=== PATIENT | female | born 2000 | race Caucasian/White ===

== ENCOUNTER 2025-03-06 09:36 | Emergency (ER) | payer OTHER, SELFPAY ==
--- NOTE | ~2025-03-06 | XR_ITS ---
XR ankle LT min 3V, XR foot LT min 3V 03/06/2025 10:21 Indication: Left lateral ankle and foot pain Procedure: 4 views left ankle and 4 views left foot Comparison: No prior studies for comparison. Findings: No fracture, subluxation or dislocation. Lisfranc joint intact. No soft tissue abnormality. No foreign bodies. Moderate lateral soft tissue swelling. Impression: 1: No acute bone or joint abnormality. Reviewed, dictated and finalized at location A. Impression: 1: No acute bone or joint abnormality. Impression: 1: No acute bone or joint abnormality.
[2025-03-06 09:46] VITALS: BP 124/79; PULSE 70; RESP 20; TEMP 36.7; O2SAT 97
--- OUTSIDE RECORDS SUMMARY | 2025-03-06 10:17 | XMS_ITS | Data Portability ---
Author Organization [facility] [place] Address [address] [place] [address] Care Team Providers Care Assembler Garment Form Name Role Phone SAMRA MORENO Grain Oilseed Or Pasture Grower Unavailable EDUARDO MAYS Primary Care Provider [phone] Assessment No assessment recorded. Plan of Treatment Reminders Order Date Submit Date Provider Last Modified By Organization Details Last Modified Time Details Appointments None recorded. Lab test, urine 2024 025 [email or web address] In-Office Order, Internal Use Only DO Not Attach Compendium DO Not Attach Compendium, Do Not Delete/merge, [id number] 5 17:58:06 streptococc us group B, culture, unspecified specimen 2024 025 [facility], [address] [facility], [facility], [place], [address], 5 12:40:39 HIV 1 + 2, meaningful use set 2024 025 [facility], [address] [facility], [facility], [place], [address], 5 08:38:48 RPR (rapid plasma reagin), serum 2024 025 [facility], [address] [facility], [facility], [place], [address], 5 08:38:47 Referral None recorded. Procedures None recorded. Surgeries None recorded. Imaging US, obstetric, biophysical profile - needs weekly BPP until delivery for pre-pregnan cy BMI 47 03/07/ 2025 03/07/2 025 [facility], [address] [place] [address], [address], 11:38:21 Medication Orders Sprintec (28) 0.25 mg-0.035 mg tablet 2024 025 [facility], [address] [place], [address], 17:58:11 Patient TargetsNo targets recorded. Patient InstructionsNo instructions recorded. Reason for Referral None Reported. Results Created Date Observation Date Name Description Value Unit Range Abnormal Flag Note LastModifiedBy Organization Detail LastModifiedTime 11/11/1911/12/2024 [facility] [address] hemoglobin 13.3 g/dL 11.1-1 5.9 Not Available [facility] ([facility]) [address] [place], [address], 11/12/2024 05:37:05 11/11/19 25 11/12/2024 [facility] CT hematocrit 38.3 % 34.0-4 6.6 Not Available [facility] ([facility]) [address] [place], [address], 11/12/2024 05:37:05 11/11/19 25 11/14/2024 NUSWA B VAGIN ITIS PLUS (VG+) atopobium vaginae MODERA TE - 1 score Not Available [facility] ([facility]) [address] [place], [address], 11/14/2024 20:35:57 11/11/19 25 11/14/2024 NUSWA B VAGIN ITIS PLUS (VG+) bvab 2 LOW - 0 score Not Available [facility] ([facility]) [address] [place], [address], 11/14/2024 20:35:57 11/11/19 25 11/14/2024 NUA B VAGIN ITIS PLUS (VG+) megasphaera 1 HIGH - 2 score abnormal Calcu late total score by sole pyle the 3 indiv idual bacte rial vagin osis (BV) marke r score s toget her. Total score is inter prete d as follo ws: Total score 0-1: Indic ates the absen ce of BV. Total score 2: Indet ermin ate for BV. Addit ional clini cheo data shoul d be evalu ated to estab vipin a diagn osis. Total score 3-6: Indic ates the prese nce of BV. Not Available [facility] ([facility]) [address] [place], [address], 11/14/2024 20:35:57 11/11/19 25 11/14/2024 NUA B VAGIN ITIS PLUS (VG+) aneudy albicans, SCARLET POSITI VE negati ve abnormal Not Available [facility] ([facility]) [address] [place], [address], 11/14/2024 20:35:57 11/11/19 25 11/14/2024 NUA B VAGIN ITIS PLUS (VG+) aneudy glabrata, SCARLET NEGATI VE negati ve Not Available [facility] ([facility]) [address] [place], [address], 11/14/2024 20:35:57 11/11/19 25 11/14/2024 NUA B VAGIN ITIS PLUS (VG+) trich vag by SCARLET NEGATI VE negati ve Not Available [facility] ([facility]) [address] [place], [address], 11/14/2024 20:35:57 11/11/19 25 11/14/2024 NUA B VAGIN ITIS PLUS (VG+) chlamydia trachomatis, SCARLET NEGATI VE negati ve Not Available [facility] ([facility]) [address] [place], [address], 11/14/2024 20:35:57 11/11/19 25 11/14/2024 NUSWA B VAGIN ITIS PLUS (VG+) neisseria gonorrhoeae, SCARLET NEGATI VE negati ve Not Available [facility] ([facility]) [address] [facility], [place], [address], 11/14/2024 20:35:57 12/23/19 25 12/23/2024 RPR, RFX QN RPR/C ONFIR M TP RPR NON REACTI VE nonrea ctive Not Available [facility] ([facility]) [address] [facility], [place], [address], 12/23/2024 08:38:46 12/23/19 25 12/23/2024 HIV AB/P2 4 AG WITH REFLE X HIV Ab/P24 Ag screen NON REACTI VE nonrea ctive HIV-1 /HIV- 2 antib odies and HIV-1 p24 antig en were NOT detec vania. There is no labor atory evide nce of HIV infec tion. HIV Negat jayme Not Available [facility] ([facility]) [address] [facility], [place], [address], 12/23/2024 08:38:48 01/07/20 25 01/10/2025 STREP GP B CULTU RE strep gp B culture NEGATI VE negati ve Cente rs for Disea se Contr ol and Preve ntion (CDC) and Ameri can Congr ess of Obste trici ans and Gynec ologi sts (ACOG ) guide lines for preve ntion of perin atal group B strep tococ cheo (GBS) disea se speci fy co-co llect ion of a vagin al and recta l swab speci men to maxim ize sensi tivit y of GBS detec tion. Per the CDC and ACOG, swabb ing both the lower vagin a and rectu m subst antia lly incre ases the yield of detec tion derrick red with sampl ing the vagin a alone . Penic illin G, ampic illin , or cefaz justin are indic ated for intra partu m proph ylaxi s of perin atal GBS colon izati on. Refle x susce ptibi lity testi ng shoul d be perfo rmed prior to use of clind amyci n only on GBS isola ayse from penic illin -irlanda rgic women who are consi dered a high risk for anaph ylaxi s. Treat ment with vanco mycin witho ut addit ional testi ng is warra nted if resis tance to clind amyci n is noted . Not Available [facility] ([facility]) [address] [facility], [place], [address], 01/10/2025 12:40:39 02/22/2002/21/2025 pregn brian test, urine HCG negati ve Not Available In-Office Order Internal Use Only DO Not Attach Compendium DO Not Attach Compendium, Do Not Delete/merge, [id number] 02/21/2025 16:25:49 11/21/19 US, obste tric, follo w-up No observ ation record ed. [email or web address] Not Available 11/25 17:59:57 12/17/19 25 12/16/2024 US, obste tric, follo w-up No observ ation record ed. [facility] [address] [place] [address], [address], 01/04/2025 15:56:21 12/21/19 25 12/20/2024 US, obste tric, follo w-up No observ ation record ed. [facility] [address] [place] [address], [address], 12/22/2024 10:36:33 12/24/19 25 12/23/2024 US, obste tric, bioph ysica l profi le No observ ation record ed. [facility] [address] [place], [address], 01/10/2025 11:40:31 12/28/19 25 12/23/2024 US, obste tric, bioph ysica l profi le No observ ation record ed. [facility] [address], [address], 01/10/2025 11:41:31 12/31/19 25 12/30/2024 US, obste tric, bioph ysica l profi le No observ ation record ed. [facility] [address], [address], 01/10/2025 11:39:53 01/07/20 25 01/06/2025 US, obste tric, bioph ysica l profi le No observ ation record ed. [facility] [address], [address], 01/11/2025 11:40:50 Result Notes None recorded. Problems Name Problem SNOMED Code Status Onset Date Resolution Date Notes Provider Name and Address Organization Details Recorded Time Candidia sis of skin 15945201 Completed 202010/25/2023 Eduardo Mays MD Attn: Denver pyle,[address] [place], [address], [facility] - [facility] 4 09:19:02 Allergic rhinitis 65627290 Completed 202010/25/2023 Eduardo Mays MD Attn: [place] pyle,[address] [place], [address], [place] [facility] 4 09:18:58 Vaginal discharg e 360272882 Completed 05/21/2020 Rika Coleman null, [place] - [facility] 0 12:04:42 Tobacco dependen ce syndrome 40969699 Completed 202005/01/2024 Eduardo Mays MD Attn: eDnver pyle,[address] [place], [address], [place] - [facility] 4 15:51:22 Body mass index 40+ - severely obese 865010222 Completed 202008/07/2022 Eduardo Mays MD Attn: Danicaandrae pyle,[address] [facility], [place], [address], [place] - [facility] 4 15:51:14 Low back pain 548366854 Completed 202010/25/2023 Eduardo Mays MD Attn: [place] pyle,[address] [facility], [place], [address], [place] [facility] 4 09:19:07 Unstable knee 457551006 Completed 202010/25/2023 Eduardo Mays MD Attn: Danicaandrae pyle,[address] [facility], [place], [address], [place] [facility] 4 09:19:26 Essentia l hyperten malik 04560653 Completed 202105/01/2024 Eduardo Mays MD Attn: Danicaandrae pyle,[address] [facility], [place], [address], [place] [facility] 4 15:52:07 Body mass index 30+ - obesity 033166486 Completed 202105/01/2024 Eduardo Mays MD Attn: Danicaandrae pyle,[address] [facility], [place], [address], [place] [facility] 4 15:51:10 Vitamin D deficien 36543009 Completed 202110/25/2023 SAMRA MORENO MD Attn: [place] pyle,[address] [facility], [place], [address], [place] [facility] 4 10:27:01 Cannabis dependen ce 90762580 Active 2022 Eduardo Mays MD Attn: [place] pyle,[address] [facility], [place], [address], [place] [facility] 3 23:49:00 Generali zed anxiety disorder 68744248 Active 2022 Eduardo Mays MD Attn: [place] pyle,[address] [facility], [place], [address], [place] [facility] 3 23:49:32 Major depressi ve disorder 777333635 Completed 202205/01/2024 Eduardo Mays MD Attn: Denver pyle,[address] [facility], [place], [address], [place] [facility] 4 15:52:05 Derangem ent of right knee 33403947377 417895 Active 2022 Eduardo Mays MD Attn: [place] pyle,[address] [facility], [place], [address], [place] [facility] 3 23:50:06 Vitamin D below referenc e range 092220201 Completed 202207/26/2024 SAMRA MORENO MD Attn: [place] pyle,[address] [facility], [place], [address], [place] [facility] 4 11:19:32 Body mass index 40+ - severely obese 507796701 Active 2023 Eduardo Mays MD Attn: [place] pyle,[address] [facility], [place], [address], [place] [facility] 4 15:51:14 Nicotine dependen ce 48360332 Completed 202309/16/2024 ASMRA MORENO MD Attn: [place] pyle,[address] [facility], [place], [address], [place] [facility] 4 11:47:52 Mixed anxiety and depressi ve disorder 694563726 Active 2023 SAMRA MORENO MD Attn: Denver pyle,[address] [facility], [place], [address], [place] [facility] 5 17:51:16 Pregnanc y 27644569 Completed 202301/31/2025 Alexus Delong [place] null, [place] [facility] 5 16:00:25 Maternal obesity complica ting pregnanc y, childbir th and the puerperi , antepart 54676612564 7 Completed 2023 Pre-preg BMI 47.1, pre-preg weight 283 lbs. Recommen ded 11-20 lb weight gain. Weekly antenata l surveill ance starting at 34w0d ordered 12/09/24. SAMRA MORENO MD Attn: Denver pyle,[address] [place], [address], [place] [facility] 5 10:14:05 Mixed anxiety and depressi ve disorder 441102939 Completed 2023 Inconsis tently taking sertrali ne and aripipra zole since 08/2024 after addition al reassura nce from PharmD that benefits outweigh risks. SAMRA MORENO MD Attn: Denver edenilson,[address] [place], [address], [place] [facility] 5 17:56:02 Vitamin D deficien cy 44212623 Completed 2023 SAMRA MORENO MD Attn: [place] pyle,[address] [place], [address], [place] [facility] 4 10:27:02 Varicell a non-immu ne 758374670 Active 2023 needs varicell a vaccine after delivery and 4-8 weeks postpart SAMRA MORENO MD Attn: Danicaandrae pyle,[address] [place], [address], [place] [facility] 4 11:19:19 Varicell a non-immu ne 033811100 Completed 2023 needs varicell a vaccine after delivery and 4-8 weeks postpart SAMRA MORENO MD Attn: Denver edenilson,[address] [place], [address], [place] [facility] 4 11:19:19 Maternal obesity complica ting pregnanc y, childbir th and the puerperi , antepart 90015321640 7 Active 2023 Pre-preg BMI 47.1, pre-preg weight 283 lbs. Recommen ded 11-20 lb weight gain. Weekly antenata l surveill ance starting at 34w0d ordered 12/09/24. SAMRA MORENO MD Attn: Denver pyle,[address] [facility], [place], [address], [place] - [facility] 5 10:14:05 Elevated blood-pr essure reading without diagnosi s of hyperten malik 701657454 Active 2023 BP in 130s/80s during 1st and early 2nd trimeste r. Normal baseline PIH labs. Prescrib ed baby aspirin for pre-E prophyla xis. Repeat PIH labs during OB triage visit on 12/15/24 showed indeterm inate range UPCR of 269.9; discharg ed with home BP cuff for home monitori ng. SAMRA MORENO MD Attn: Denver pyle,[address] [facility], [place], [address], [place] [facility] 5 10:44:13 Elevated blood-pr essure reading without diagnosi s of hyperten malik 240471395 Completed 2023 BP in 130s/80s during 1st and early 2nd trimeste r. Normal baseline PIH labs. Prescrib ed baby aspirin for pre-E prophyla xis. Repeat PIH labs during OB triage visit on 12/15/24 showed indeterm inate range UPCR of 269.9; discharg ed with home BP cuff for home monitori ng. SAMRA MORENO MD Attn: [place] pyle,[address] [facility], [place], [address], [place] [facility] 5 10:44:13 Vitamin D deficien cy 86522280 Active 2023 SAMRA MORENO MD Attn: [place] pyle,[address] [facility], [place], [address], [place] [facility] 4 10:27:01 Breast lump 98327006 Completed 05/21/2020 Rika Coleman null, [place] [facility] 0 12:04:32 Attentio n deficit hyperact ivity disorder 606881625 Active SAMRA MORENO MD Attn: Denver pyle,[address] [facility], [place], [address], [facility] 2 10:07:14 Problem Notes None recorded. Procedures Surgical History Date Name Laterality Status Provider Name and Address Organization Details Recorded Time 4 OB Dating Ultrasound completed SAMRA MORENO MD Attn: Accounting, [facility], [place], [address], [facility] - [facility] 06/24/2024 15:03:03 2 Date of Last Pap Smear completed Maeve Garcia MA [facility] 09/16/2022 14:32:51 Oral surgery procedure completed Alexus Delong [facility] 02/15/2019 10:13:14 Imaging Results None recorded. Procedure Notes None recorded. Medical Equipment None Reported. Allergies Allergen ID Allergen Name Allergen Category Reaction Reaction Severity Criticality Documentation Date Start Date Code Code System Note Provider Name and Address Organization Details Recorded Time 989815 wheat preparati on food,medi cation abdominal pain moderate Not available 11/03/20202020 48472 52 RxNorm MELANIE SMILEY NP Attn: Denver pyle,[address] [facility], [place], [address], [facility] - [facility] 1 16:39:43 636354 tramadol medicatio n vomiting severe high 06/17/20232012 46986 RxNorm Maeve Mahmood MA [facility] [place] - [facility] 3 09:17:59 Medications Name Sig Start Date Stop Date Status Note LastModified by Organization Details LastModified Time cyclobenz aprine 10 mg tablet TAKE 1 TABLET BY MOUTH TWICE DAILY EVERY 12 HOURS NEEDED 08/07 completed prn Not Available Not Available Not Available amoxicill in 500 mg capsule 02/15 completed Not Available Not Available Not Available clonidine HCl 0.1 mg tablet TAKE 1 TABLET BY MOUTH AT BEDTIME 02/18 completed Not Available Not Available Not Available acetamino phen 325 mg tablet 06/24 completed Not Available Not Available Not Available trazodone 50 mg tablet TAKE 2 TABLETS BY MOUTH AT BEDTIME 04/12 completed Not Available Not Available Not Available ibuprofen 800 mg tablet TAKE 1 TABLET BY MOUTH EVERY 8 HOURS NEEDED 08/14 completed Not Available Not Available Not Available fluconazo le 150 mg tablet Take 1 tablet by oral route. 12/09 completed Not Available Not Available Not Available hydrocodo ne 5 mg-acetam inophen 325 mg tablet TAKE 1 TABLET BY MOUTH EVERY 8 HOURS NEEDED 06/24 completed Not Available Not Available Not Available methylphe nidate 5 mg tablet Take 1 tablet twice a day by oral route as directed for 30 days. 12/11 completed Not Available Not Available Not Available hydroxyzi ne pamoate 50 mg capsule Take 1 capsule every day by oral route at bedtime for 30 days. 01/31 completed Not Available Not Available Not Available methylphe nidate ER 54 mg tablet,ex tended release 24 hr Take 1 tablet every day by oral route in the morning for 30 days. 12/11 completed Not Available Not Available Not Available acetamino phen 300 mg-codein e 30 mg tablet 12/11 completed Not Available Not Available Not Available aspirin 81 mg tablet,de layed release Take 1 tablet every day by oral route, for pre-ecla mpsia preventi on. 01/31 completed Not Available Not Available Not Available trazodone 100 mg tablet TAKE 1 TABLET BY MOUTH AT BEDTIME 06/24 completed Not Available Not Available Not Available nystatin 100,000 unit/gram topical cream APPLY CREAM TOPICALL Y TO AFFECTED AREA TWICE DAILY 08/14 completed Not Available Not Available Not Available lidocaine 5 % topical patch APPLY 1 PATCH TOPICALL Y ONCE DAILY LEAVE ON MOST PAINFUL AREA FOR UP TO 12 HOURS 06/24 completed Not Available Not Available Not Available polymyxin B sulfate 10,000 unit-trim ethoprim 1 mg/mL eye drops 02/27 completed Not Available Not Available Not Available ergocalci ferol (vitamin D2) 1,250 mcg (50,000 unit) capsule Take 1 capsule every week by oral route. 06/05 completed Not Available Not Available Not Available SSD 1 % topical cream 03/10 completed Not Available Not Available Not Available sertralin e 50 mg tablet TAKE 1 TABLET BY MOUTH ONCE DAILY active Not Available Not Available No t Available amoxicill in 500 mg-potass ium clavulana te 125 mg tablet 05/04 completed Not Available Not Available Not Available buspirone 15 mg tablet TAKE 1 TABLET BY MOUTH THREE TIMES DAILY active Not Available Not Available No t Available escitalop rolo 10 mg tablet TAKE 1 TABLET BY MOUTH ONCE DAILY 10/22 completed Not Available Not Available Not Available Sprintec (28) 0.25 mg-0.035 mg tablet TAKE 1 TABLET BY MOUTH ONCE DAILY active Not Available Not Available No t Available Strattera 25 mg capsule TAKE 1 CAPSULE BY MOUTH ONCE DAILY IN THE MORNING 06/03 completed ineffect jayme for managing ADHD Not Available Not Available Not Available cyclobenz aprine 5 mg tablet TAKE 1 TABLET BY MOUTH THREE TIMES DAILY NEEDED FOR MUSCLE SPASMS 06/05 completed Not Available Not Available Not Available aripipraz ole 5 mg tablet TAKE 1 TABLET BY MOUTH ONCE DAILY active Not Available Not Available No t Available Baby Aspirin 09/16 completed 81mg Not Available Not Available Not Available cholecalc iferol (vitamin D3) 25 mcg (1,000 unit) tablet Take 1 tablet every day by oral route. 08/23 completed Not Available Not Available Not Available CompleteN ate 29 mg iron-1 mg chewable tablet Chew 1 tablet every day by oral route. 08/23 completed Not Available Not Available Not Available M- Plus 27 mg iron-1 mg tablet Take 1 tablet every day by oral route. 01/31 completed Not Available Not Available Not Available Vitals Date Recorded Body height Body mass index (BMI) Body weight Oxygen saturation Oxygen saturation in Arterial blood by Pulse oximetry Heart rate Body temperature Systolic blood pressure Diastolic blood pressure Provider Name and Address Organization Details Last Updated DateTime 5 165.1 cm 50.4 kg/m2 814090. 84 g 99 % 99 % 94 /min 98.3 [degF] 137 mm[Hg] 81 mm[Hg] Alexus Delong [place] - [facility] 5 16:10:35 Date Recorded Body height Body mass index (BMI) Body weight Oxygen saturation Oxygen saturation in Arterial blood by Pulse oximetry Heart rate Body temperature Systolic blood pressure Diastolic blood pressure Provider Name and Address Organization Details Last Updated DateTime 5 165.1 cm 51.6 kg/m2 757835. 98 g 98 % 98 % 76 /min 97.4 [degF] 122 mm[Hg] 84 mm[Hg] Alexus Delong MA [facility] 5 15:16:53 Date Recorded Body height Body mass index (BMI) Body weight Body temperature Oxygen saturation Oxygen saturation in Arterial blood by Pulse oximetry Respiratory rate Heart rate Systolic blood pressure Diastolic blood pressure Systolic blood pressure Diastolic blood pressure Provider Name and Address Organization Details Last Updated DateTime 5 165.1 cm 51.8 kg/m2 119968. 58 g 97.6 [degF] 98 % 98 % 16 /min 84 /min 133 mm[Hg] 80 mm[Hg] 130 mm[Hg] 83 mm[Hg] Maeve Mahmood MA [facility] 5 15:08:48 Date Recorded Body height Body mass index (BMI) Body weight Oxygen saturation Oxygen saturation in Arterial blood by Pulse oximetry Heart rate Body temperature Systolic blood pressure Diastolic blood pressure Provider Name and Address Organization Details Last Updated DateTime 5 165.1 cm 46.6 kg/m2 095502. 91 g 98 % 98 % 66 /min 97.8 [degF] 117 mm[Hg] 84 mm[Hg] Alexus Delong MA [facility] 5 15:56:11 Date Recorded Body height Body mass index (BMI) Body weight Oxygen saturation Oxygen saturation in Arterial blood by Pulse oximetry Heart rate Body temperature Systolic blood pressure Diastolic blood pressure Provider Name and Address Organization Details Last Updated DateTime 5 165.1 cm 48.3 kg/m2 304241. 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 No Information not available 07/16/2023 Are You Blind Or Do You Have Difficulty Seeing? No Information not available 08/15/2021 Is Blood Transfusion Acceptable In An Emergency? Yes Information not available 11/27/2015 What Is Your Level Of Caffeine Consumption? Moderate Information not available 06/03/2024 How Much Tobacco Do You Chew? None Information not available 12/11/2016 In The 14 Days Before Symptom Onset, Have You Had Close Contact With A Laboratory-confi rmed COVID-19 While That Case Was Ill? No Information not available 08/14/2021 In The 14 Days Before Symptom Onset, Have You Had Close Contact With A Person Who Is Under Investigation For COVID-19 While That Person Was Ill? No Information not available 08/07/2022 Have You Been To An Area Known To Be High Risk For COVID-19? No Information not available 08/14/2021 Are You Deaf Or Do You Have Serious Difficulty Hearing? No Information not available 08/15/2021 What Type Of Diet Are You Following? REGULAR Information not available 11/27/2015 Which Illicit Or Recreational Drugs Have You Used? Marijuanna Information not available 12/11/2016 Education 12 Information no t available 12/11/2016 Are There Any Guns Present In Your Home? No Information not available 08/07/2022 Live Alone Or With Others? With Others Information not available 11/27/2015 Do You Have A High School Diploma Or Higher Education? Yes Information not available 06/17/2023 Do You Sometimes Have To Miss Your Medical Appointments Due To Difficult Getting Transportation? No Information not available 06/17/2023 Do You Feel Unfairly Treated Due To Things Such As Race, Age, Gender, Disability Or Some Other Reason? Yes Information not available 06/17/2023 Do You Feel Physically And Emotionally Safe While Living At Home? Yes Information not available 06/17/2023 Do You Feel Physically And Emotionally Safe In Your Neighborhood Or Other Public Places? Yes Information not available 06/17/2023 Sex Assigned At Female Information not available 08/14/2021 In School? No Information no t available 08/14/2021 Highest Grade Completed 12 Information not available 08/14/2021 Lives With Partner/spous e Information not available 08/14/2021 Sexual Attraction Both Information not available 08/14/2021 Have You Ever Had Sex? Yes Information not available 08/14/2021 Current Gender Identity Female Information not available 08/14/2021 What Was The Date Of Your Most Recent Tobacco Screening? 02/21/2025 Information not available 02/21/2025 How Many Children Do You Have? 0 Information not available 12/11/2016 What Is Your Current Pack Years? 10packyears Information not available 07/16/2023 Performs Monthly Self-breast Exam? Yes Sometimes Information not available 03/10/2018 Do You Use Protection During Sex? No Information not available 03/10/2018 What Is Your Relationship Status? Single Information not available 12/11/2016 Do You Use Your Seat Belt Or Car Seat Routinely? Yes Information not available 08/14/2021 Seat Belts Used Routinely Yes [email or web address] Information not available 11/24/2014 Are You Sexually Active? Yes Information not available 12/11/2016 Do You Have Smoke And Carbon Monoxide Detectors In Your Home? No Information not available 08/07/2022 At What Age Did You Start Smoking Tobacco? 17 Information not available 03/10/2018 Are You Passively Exposed To Smoke? Yes Information not available 08/07/2022 How Much Tobacco Do You Smoke? No Information not available 06/24/2024 General Stress Level Medium Information not available 02/28/2020 Do You Use Sunscreen Routinely? No Information not available 03/10/2018 Has Tobacco Cessation Counseling Been Provided? Yes Information not available 08/14/2021 On What Date Was Tobacco Cessation Counseling Provided? 02/21/2025 Information not available 02/21/2025 How Many Years Have You Smoked Tobacco? 7 Information not available 02/19/2024 How Many Years Have You Used E-cigarettes Or Vape? 4 Information not available 08/07/2022 Sex: Female Functional Status Question Answer Note LastModified by Organizat ion Details LastModified Time Do you use any illicit or recreational drugs? Yes celine on and off Information not available 06/03/2024 Do you or have you ever used any other forms of tobacco or nicotine? Yes Information not available 08/14/2021 What is your level of alcohol consumption? None Information not available 06/03/2024 Do you or have you ever used smokeless tobacco? Never used smokeless tobacco [email or web address] Information not available 05/21/2020 Are you currently employed? No Information not available 02/19/2024 Are you able to care for yourself? Yes Information not available 08/15/2021 Do you or have you ever used e-cigarettes or vape? Former user of electronic cigarettes quit 05/24/24 Information not available 06/24/2024 What is your exercise level? None Information not available 08/07/2022 Mental Status Question Answer Note LastModified by Organizat ion Details LastModified Time Do you feel stressed (tense, restless, nervous, or anxious, or unable to sleep at night)? [id number] stressed [email or web address] Information not available 05/15/2023 Family History Relationship Description Onset Age of this Age Resolved Age Notes LastModified by Organization Details LastModified Time Mother Hypertensive disorder [email or web address] Not available 2016 09:45:57 Father Crohn's disease [email or web address] Not available 2020 10:11:20 Notes:NO new reported , 08/17/23, 08/20/23, 04/05/24,04/12/24 Medical History Condition Response Coronary Artery Disease N Other Y High Blood Pressure N Atrial Fibrillation N Breast Cancer N Lung Disease N Depression N COPD N Blood Clots N Breast Problem Y Anesthesia Complications N Headaches/Migraines N Anxiety Disorder N Muscle, Joint, or Bone Problems N Arthritis N Infertility N Polyps N Acid Reflux (GERD) N Cancer N Stroke N ADHD Y Endometriosis N High Cholesterol N Liver Disease N Fibromyalgia N Schizophrenia N Headaches N Kidney Disease N Heart Problems N Thyroid Problems N Kidney or Bladder Problems N GI Problems N Acne N Have you had a mammogram in the last yea r? N Eating Disorder N Anemia N Heart Attack (DE) N Diabetes N Ovarian Cancer N Blood Transfusions N Seizures/Epilepsy N Have you had a colonoscopy in the last 1 0 years? N Abuse/Domestic Violence N Asthma N Allergies N Have you had a PSA blood test in the las t year? N Substance Abuse N Hepatitis N Heart Disease N Pre-Eclampsia N Hypertension N Heart Failure N Osteoporosis N Gynecological History Statement/Question Response Abnormal Pap Y Flow Heavy Date of LMP 02/17/2025 STIs/STDs N HPV Vaccine Y Duration of Flow (days) 5 Age at Menarche 13 Current Control Method None Age at First Child 25 Frequency of Cycle (Q days) 26 Sexually Active? Yes Menses Monthly Yes Date of Last Pap Smear 08/07/2022 Sexual Problems? N LMP Definite Obstetrics History GPAL:G 2 P 1 0 1 1 Type Value Multiple Births 0 Full Term 1 Induced 0 Spontaneous 1 Premature 0 Living 1 Ectopics 0 Total 2 Immunizations Vaccine Type Date Status Note Provider Nam e and Address Organization Details Recorded Time meningococcal MCV4P 9 lashell MORENO MD Attn: Accounting,[address] [place], [place], [address] [place] [address], [facility] 08/07/2022 09:07:58 DTaP 8 completed SAMRA MORENO MD Attn: Accounting,[address] [place], [place], [address] [place] [address] 08/07/2022 09:07:58 DTaP 2 lashell MORENO MD Attn: Accounting,[address] [place], [address] [place] [address], [facility] - SI 08/07/2022 09:07:59 Novel Guwaivshd-D5W2-07, nasal 9 lashell MORENO MD Attn: Accounting,[address] [place], [address] [place] [address], [facility] - [facility] 08/07/2022 09:07:59 DTaP 0 lashell MORENO MD Attn: Accounting,[address] [place], [address], [place] [facility] 08/07/2022 09:07:59 Tdap 7 completed SAMRA MORENO MD Attn: Accounting,[address] [facility], [place], [address], [place] [facility] 08/07/2022 09:07:59 Influenza, live, quadrivalent, intranasal 4 completed SAMRA MORENO MD Attn: Accounting,[address] 1 [facility], [place], [place], [address] [place] [address], [place] [facility] 08/07/2022 09:07:59 Tdap 2 completed SAMRA MORENO MD Attn: Accounting,[address] 1 [facility], [place], [place], [address] [place] [address], [place] [facility] 08/07/2022 09:07:59 DTaP 8 completed SAMRA MORENO MD Attn: Accounting,[address] 1 [facility], [place], [place], [address] [place] [address], [place] [facility] 08/07/2022 09:07:59 DTaP 8 completed SAMRA MORENO MD Attn: Accounting,[address] [facility], [place], [place], [address] [place] [address], [place] [facility] 08/07/2022 09:07:59 Hep B, adolescent or pediatric 8 completed Nneka Ba [place], [place] [facility] 01/25/2015 14:12:05 Hib, unspecified formulation 8 completed Nne[place] [facility] 01/25/2015 14:12:05 influenza nasal, unspecified formulation 9 completed Nne[place] [facility] 01/25/2015 14:12:05 HPV, quadrivalent 1 completed SAMRA MORENO MD Attn: Accounting,[address] [facility], [place], [place], [address] [place] [address], [place] [facility] 08/07/2022 09:07:59 Hep B, adolescent or pediatric 9 completed [place] [facility] 01/25/2015 14:12:05 Hib, unspecified formulation 8 completed [place] [facility] 01/25/2015 14:12:05 Hep A, ped/adol, 2 dose 2 completed SAMRA MORENO MD Attn: Accounting,[address] [place], [address] [place] [address], [place] [facility] 08/07/2022 09:07:58 Hep B, adolescent or pediatric 8 completed [place] [facility] 01/25/2015 14:12:05 HPV, quadrivalent 0 completed SAMRA MORENO MD Attn: Accounting,[address] [place], [address] [place] [address], [place] [facility] 08/07/2022 09:07:59 HPV, quadrivalent 0 completed SAMRA MORENO MD Attn: Accounting,[address] [place], [address] [place] [address], [place] [facility] 08/07/2022 09:07:58 Hep A, ped/adol, 2 dose 9 completed SAMRA MORENO MD Attn: Accounting,[address] [place], [address] [place] [address], [place] [facility] 08/07/2022 09:07:59 Hep B, adolescent or pediatric 8 completed [place] [facility] 01/25/2015 14:12:05 Hib, unspecified formulation 8 completed [place] [facility] 01/25/2015 14:12:05 IPV 0 completed [place] [facility] 01/25/2015 14:17:05 IPV 8 completed [place] [facility] 01/25/2015 14:17:05 IPV 2 completed SAMRA MORENO MD Attn: Accounting,[address] [place], [address] [place] [address], [place] [facility] 08/07/2022 09:07:59 varicella 9 completed SAMRA MORENO MD Attn: Accounting,[address] [facility], [place], [address], [place] [facility] 08/07/2022 09:07:59 meningococcal MCV4, unspecified formulation 9 completed [facility] 11:40:40 varicella 2 completed Nne[place] [facility] 01/25/2015 14:17:05 IPV 8 completed [place] [facility] 01/25/2015 14:17:05 MMR 2 completed SAMRA MORENO MD Attn: Accounting,[address] [facility], [place], [address], [place] [facility] 08/07/2022 09:07:58 MMR 9 completed [place]ne[place] [facility] 01/25/2015 14:17:05 Tdap 9 completed SAMRA MORENO MD Attn: Accounting,[address] [facility], [place], [address], [place] [facility] 08/07/2022 09:07:59 IPV 9 completed N[place] [facility] 01/25/2015 14:17:05 Meningococcal MCV4O 5 completed MELANIE SMILEY NP Attn: Accounting,[address] [facility], [place], [address], [place] [facility] 06/05/2023 10:18:50 Tdap 5 completed Alexus Del[place] [facility] 11/11/2024 17:21:48 Past Encounters Encounter ID Performer Location Encounter Start Date Encounter Closed Date Diagnosis/Indication Diagnosis SNOMED-CT Code Diagnosis ICD10 Code Diagnosis Note [id number] MD Shawn Tate (Peds) [address] [facility] [place] [address] 10/27/2014 10:18:28 10/27/2014 13:04:26 Attention deficit hyperactivity disorder [id number] MD Venus Alejandra (CENTERLESS GRINDER OPERATOR) [address] [place] [address] 11/24/2014 09:33:49 11/24/2014 16:56:34 Oral contraceptive prescribed [id number] Venereal d isease screening 368337963 Vaginal discharge 481468567 Normal appearing d/c d/w pt and mother. Vaginal culture sent for confirmati on. [id number] MD Shawn Tate (Peds) [address] [place] [address] 01/30/2015 10:01:56 01/30/2015 11:28:02 Attention deficit hyperactivity disorder [id number] Well child [id number] Breast lump [id number] MD Shawn Tate (Peds) [address] [place] [address] 04/27/2015 14:30:49 04/30/2015 15:18:27 Attention deficit hyperactivity disorder 132310624 Will resume Rx when school starts, 50% special class plus job program [id number] MD Shawn Tate (Peds) [address] [place] [address] 07/27/2015 10:09:55 07/27/2015 12:51:12 Attention deficit hyperactivity disorder 846753423 F90.9 Will resume Rx when school starts, 50% special class plus job program 10-23 Resume [employer] 54 in am only. [id number] MD Shawn Tate (Peds) [address] [place] [address] 10/26/2015 09:44:23 10/26/2015 12:51:41 Attention deficit hyperactivity disorder 322367362 F90.2 Will resume Rx when school starts, 50% special class plus job program 10-23 Resume [employer] 54 in am only. 10-26 Continue same med. [id number] MD Venus Alejandra (CENTERLESS GRINDER OPERATOR) [address] [place] [address] 11/27/2015 09:25:28 11/27/2015 12:33:56 Venereal disease screening 767806898 Z11.3 RTO one week for results. Uses oral contraception 2769624 Z30.41 [id number] [facility] ([employer]INDER OPERATOR) [address] [place] [address] 12/11/2015 09:24:30 12/11/2015 10:03:54 Venereal disease screening 852821670 Z11.3 Vaginal culture was negative for BV, yeast, gonorrhea, chlamydia, and trichomona s, dwp. STD panel was also completely negative. Individual results d/w pt. RTO PRN + 1 year. [id number] MD Corinna Alejandrahalto (CENTERLESS GRINDER OPERATOR) [address] [place] [address] 12/11/2016 09:22:18 12/15/2016 17:57:29 Venereal disease screening 394054671 Z11.3 RTO one week for results. Surveillan ce of oral contraception 719929320 Z30.41 Refill sent. Obesity 663846553 E66.9 Weight loss discussed. [id number] MD Corinna Alejandrahalto (CENTERLESS GRINDER OPERATOR) [address] [place] [address] 01/05/2017 17:27:23 01/07/2017 09:55:45 Venereal disease screening 577740453 Z11.3 Vaginal culture was negative for gonorrhea, chlamydia, and trichomona s, dwp. STD panel was also completely negative. Individual test results dwp. Obesity 686573232 E66.9 Weight loss discussed. [id number] MD Venus Alejandra (CENTERLESS GRINDER OPERATOR) [address] [place] [address] 03/10/2018 08:58:46 03/10/2018 14:54:37 Venereal disease screening 602955647 Z11.3 RTO one week for results. Smoker 76602366 F17.200 Increased risk of blood clots with smoking and OCPs d/w pt. Pt. asked to choose between smoking and taking control pills. Pt. chose control pills. Surveillan ce of oral contraception 509293208 Z30.41 PT. started smoking. Pt. asked to choose between smoking and taking control pills. Pt. chose control pills. Rx sent to pharmacy. Samir barrientos discussed. [id number] MD [facility] (CENTERLESS GRINDER OPERATOR) [address] [place] [address] 03/17/2018 10:01:07 04/26/2018 10:42:23 Surveillance of oral contraception 200429699 Z30.41 PT. started smoking. Pt. asked to choose between smoking and taking control pills. Pt. chose control pills. Rx sent to pharmacy. Samir barrientos discussed. RTO 3 mo. for follow-up Venereal d isease screening 882201370 Z11.3 Vaginal culture was negative for gonorrhea, chlamydia, and trichomona s, dwp. STD panel was also completely negative. Individual test results dwp. [id number] MD Venus Alejandra (CENTERLESS GRINDER OPERATOR) [address] [place] [address] 06/16/2018 15:42:20 06/17/2018 11:56:29 Surveillance of oral contraception 687777520 Z30.41 Refill sent. [id number] MD Venus Alejandra (CENTERLESS GRINDER OPERATOR) [address] [place] [address] 02/15/2019 09:51:21 02/16/2019 11:29:49 Vaginal discharge 467918933 N89.8 On exam, pt likely just starting her period early. Slightly foul-smell ing. Culture sent. [id number] MD Venus Alejandra (CENTERLESS GRINDER OPERATOR) [address] [place] [address] 05/04/2019 15:39:37 05/04/2019 17:49:42 Gynecologic examination 64719121 Z01.411 First pap today Venereal d isease screening 429965631 Z11.3 RTO one week for results. Obesity 674587635 E66.9 Weight loss discussed. Surveillan ce of oral contraception 310804572 Z30.41 Refill sent. Pt advised to stop vaping. [id number] MD Venus Alejandra (CENTERLESS GRINDER OPERATOR) [address] [place] [address] 05/16/2019 15:39:03 05/17/2019 12:41:35 Atypical squamous cells of undetermined significance on cervical Papanicolaou smear 610879385 R87.610 Progressio n of abnormal cervical cells to cervical CA d/w pt. as well as pt.'s current pap in that progressio n. Need for repeat pap in one year discussed. Venereal d isease screening 935915423 Z11.3 Vaginal culture was negative for gonorrhea, chlamydia, and trichomona s, dwp. STD panel was also completely negative. Individual test results dwp. [id number] MD Venus Alejandra (CENTERLESS GRINDER OPERATOR) [address] [place] [address] 02/28/2020 08:51:18 02/29/2020 06:18:26 Surveillance of oral contraception 902784587 Z30.41 Refill sent. Pt re-informe d of the risks of taking OCPs and vaping and was advised to stop vaping. Pt. expressed understand ing and agreement. Atypical s quamous cells of undetermined significance on cervical Papanicolaou smear 466607178 R87.610 Last pap done 05/04/19 was ASCUS. Need for repeat pap in May dwp. Pt. to make appt. Tobacco user 106975093 Z 72.0 Pt. advised of risks of vaping and cessation was discussed. Pt. agreeable. [id number] MD Venus Alejandra (CENTERLESS GRINDER OPERATOR) [address] [place] [address] 05/21/2020 11:53:53 05/22/2020 07:57:56 Gynecologic examination 68693641 Z01.411 Last pap done 05/04/19 was ASCUS. [facility] 023499863 Z30.9 Refill sent. Body mass index 40+ - severely obese 487754306 Z68.41 Nutrition and exercise discussed. Poor socia l circumstances 353063922 Z60.9 Pt. with numerous flea bites from other people's animals. However, she still has three cats running around. Pt. stopped taking all her ADHD medication 4 years ago. She does not think she needs it. She has gained 100 lbs since then which she attributes to stress eating. Risks of self-medic ating with food discussed. [id number] MELANIE SMILEY NP [facility] [address] [place] [address] 10/09/2020 09:49:34 10/10/2020 19:53:53 Adult health examination 183344129 Z00.00 - Discussed with patient findings, diagnoses, and prognosis. - Discussed plan of care including treatment options, risks, and benefits with patients.- Patient expressed understand ing.- The following interventi ons were recommende d: heart healthy low-fat, low-sodium diet, ideal body weight, regular exercise, medication s compliance , and medical follow-up as noted. 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 In the meantime, will check thyroid function and follow up as needed. Diabetes m ellitus screening 343125509 Z13.1 Hyperlipid emia screening 114032180 Z13.220 Abdominal pain 46221506 R10.9 [id number] MELANIE SMILEY NP [facility] [address] [place] [address] 11/06/2020 08:39:07 11/07/2020 14:05:24 Candidiasis of skin 00072577 B37.2 - Take your medicines exactly as prescribed - Keep your skin clean and dry- Avoid scratching your irritated skin. Scratching can make the irritation worse or even cause a skin infection that requires antibiotic s. - Clean your skin with mild soap and lukewarm water. Allergic rhinitis 518656 04 J30.9 - Avoidance/ eliminatio n of offending allergens (e.g., frequent vacuuming, dusting, remove feather pillows from bedroom, change air conditione r filter frequently , removal of house plants, pet control, remove carpet, stuffed animals) - OTC Antihistam james as needed (e.g., Claritain, Zyrtec, Cindy and Benadryl) [id number] Lola Thakkar MD [facility] [address] [place] [address] 02/27/2021 09:01:23 02/27/2021 18:49:25 Pain in right knee 9694955541 17211 M25.561 - Educated on RICE method and OTC treatments . - Patient to RTC if condition worsens or does not improve. Low back pain 547822774 M54.5 - Apply heat to low back 10-15 minutes 3 times a day. - No heavy lifting over 10 LBS. - Stretching exercises per handout twice daily. ( take muscle relaxer/pa in med- 15 min prior) - Avoid bending or twisting at the waist; keep hips and shoulders aligned at all times. - Avoid sitting if possible, unless it feels better than standing. - Do not do anything that makes your symptoms worse. - RTC for worsening symptoms [id number] MD [facility] (CENTERLESS GRINDER OPERATOR) [address] [facility] [address] [place] [address] 08/14/2021 10:50:16 08/21/2021 05:25:51 Gynecologic examination 06561656 Z01.411 Recent Pap history:2018: ASCUS, no HPV testing05/06 020: NILMnot due for another pap for 3 years [facility] ion care management 139823497 Z30.9 refill COCMinimal concern for infertilit y and PCOS at this time as patient is consistent on COCEncoura ged increased healthy diet, reducing processed food, and physcial activity Nicotine d ependence with current use 643871672 F17.200 - Spent between 3-10 min discussing risks of smoking and benefits of quitting, patient not interested in smoking cessation at this time. [id number] Fei Grigsby MD [place] [facility] [address] [facility] [address] [place] [address] 08/15/2021 10:21:27 08/17/2021 22:49:21 Low back pain 461419248 M54.50 - Patient states she had not gotten xray of back.- Patient provides with informatio n and encourage to get lumbar xray done, continue otc pain reliever. Unstable knee 069535409 M25.369 - Will order x-ray. - Educated on RICE method and OTC treatments . - Patient to RTC if condition worsens or does not improve. - Will call results of x-ray to patient. Tobacco de pendence syndrome 07703753 F17.200 - Patient is a current cigarette smoker, states she smokes 1/2pk per day and currently has no desire to quit.- Patient advised in the derogatory effects of smoking- Counseling for smoking cessation completed Body mass index 40+ - severely obese 988061406 Z68.41 - d/w patient importance of implementi ng some sort of exercise regimen at least 20-30 minutes activity/d ay, watching her diet and eating breakfast as this has shown to be most effective for prison maintenanc e of weight loss. [id number] MD Corinna JOINERhalto (CENTERLESS GRINDER OPERATOR) [address] [place] [address] 08/07/2022 08:48:34 08/08/2022 11:41:04 Screening for malignant neoplasm of cervix 977089874 Z12.4 - ASCUS on Pap in 2018, followed by NILM in 2019- Needs repeat Pap now; collected today- If NILM again, resume routine screening; otherwise, needs colposcopy Reproducti ve care management 009099311 Z31.9 - Has tried getting since December and has not been successful yet- Provided Reproducti ve Access handout on preparing for a healthy and discussed lifestyle changes at length- Will check vitamin D levels and supplement as indicated by results- Sent vitamin to pharmacy- Return to clinic in 6 months if not yet to evaluate for infertilit y Smoker 51934998 F17.200 - Encouraged cessation for overall health, as well as reducing risk of cardiovasc ular disease and cancer and improving fertility- Provided FDA handout on smoking's effects on reproducti on- Discussed pharmacolo gic supports to help with quitting smoking with patient; recommende d following up with PCP if wanting nicotine replacemen t or bupropion to help with cravings Body mass index 30+ - obesity 981405580 Z68.39 - Discussed healthy behaviors, including dietary changes and physical activity- Will screen for diabetes with A1c; previously had normal result in 2020- Referred to acute dialysis registered nurse for assistance in making healthy dietary changes given wheat allergy and self-descr ibed picky eating behavior Essential hypertension 06979533 I10 - BP 120/96 today with SBP in the 130s at most recent previous visits; qualifies as stage 1 HTN with average BP of 126/87 over last 4 readings- Discussed increased risks for complicati ons with history of HTN- Recommende d diet changes and regular physical activity as above for initial management ; if needing pharmacolo gic treatment, will need - safe options such as nifedipine or labetalol in future [id number] MD Corinna JOINERhalto (CENTERLESS GRINDER OPERATOR) [address] [place] [address] 09/16/2022 14:24:21 09/18/2022 16:00:29 Menstrual spotting 0115550 N92.5 - DDx: anovulator y cycle vs implantati on bleeding (less likely with negative test today)- Recommend watchful waiting at this time until next anticipate d period- If no period in 4-5 weeks, patient to return to clinic for follow up evaluation ; consider PCOS workup at that time [id number] MD Venus JOINER (CENTERLESS GRINDER OPERATOR) [address] [facility] [address] [place] [address] 10/24/2022 09:00:44 10/30/2022 17:13:05 Reproductive care management 214216078 Z31.69 Z71.1 - Recommende d use of over the counter ovulation kit to confirm ovulation window and to have intercours e when that occurs- Continue vitamin use- Return to clinic if has had intercours e with ovulatory cycles and is still not getting ; will consider workup for male factor and structural causes of infertilit y [id number] MD Venus JOINER (CENTERLESS GRINDER OPERATOR) [address] [facility] [address] [place] [address] 05/15/2023 16:24:39 05/20/2023 12:14:09 Body mass index 30+ - obesity 154687847 Z68.38 - Encouraged patient to avoid wheat due to her wheat allergy and to prioritize fruits, vegetables , and other proteins Abdominal pain 93053259 R10.9 - Notified patient of normal dipstick and urine test results. No concern for UTI and therefore no concern for pyelonephr itis despite right-side d CVA tenderness on exam.- Advised use of OTC pain medication s to manage symptoms- Provided anticipato ry guidance regarding when to seek emergency care for acutely worsening abdominal pain- If pain becomes chronic, patient to return to clinic for further evaluation [id number] MD Shawn Pacheco 14 IM 4 [facility] [address] [place] [address] 06/17/2023 09:02:35 07/06/2023 15:43:02 Body mass index 30+ - obesity 625179624 Z68.39 Recommend continued lifestyle modificati ons. Major depr essive disorder 614371630 F32.9 Uncontroll ed. Endorses SI in the past. Denies SI at this time. Refuses to discuss further.Ad vised best success with dual therapy. Will order labs to rule out medical causes.Rec ommend start SSRI in the interim.Re ferral to Psychiatry for better management . For fear of abandonmen t, will to short interval PCP followups in the interim.Ad vised to monitor for possible episodes of raymundo. Possible component of other potential personalit y diagnosis. Records from psychother apy requested. Anxiety 17681991 F41.9 See assessment and plan for major depressive disorder. Suspect mixed picture. Attention deficit hyperactivity disorder 661570677 F90.9 Based on evaluation , mood disorder appears predominan t.Reports off of ADHD medication s for some time. Advised would like to focus on mood stabilizat ion predominan tly.Record s requested from previous counselor. Referral sent to psychiatry . Pain of ri ght knee joint [id number] 84944 M25.561 Secondary to recent trauma. Limited examinatio n given patient's level of frustratio n and significan t pain.Patie nt informed worker's comp needs to be managed by her employers preferred provider.A nother referral sent to orthopedic s to establish a closer appointmen t.Given significan t pain weeks out, suspect possible internal ligament injury.Krunal l refer to PT. provided with knee exercises. Potentiall y may require an MRI. Contracept ion care management 683725243 Z30.9 Safe sex practices recommende d. Advised to start vitamins given lack of barrier contracept jayme. Adult heal th examination 286727815 Z00.00 Mood concerns managed as below.Inte rnal derangemen t of knee managed as below. Vitamin D below reference range 769752438 E55.9 level of 19 on 06/17. Insufficie ncy. Supplement and retest in 3 months. Marijuana user 489159707 F12.90 Advised it may impair wound healing. Recommend cessation [id number] MD Shawn GARCIA 14 IM 4 [facility] [address] [place] [address] 07/16/2023 14:20:53 07/27/2023 14:12:00 Generalized anxiety disorder 70398474 F41.1 Uncontroll ed. Will continue additional 2 weeks before further titration. Pt given ER, SI & HI precaution s. Major depr essive disorder 571937305 F32.9 Uncontroll ed. Endorses SI in the past. Denies SI at this time. Endorses trauma Hx, w/ behave Tx records rec'd.Cont inues dual therapy.Pt informs she prefers management only from one provider & declines psychiatry management .Short interval f/uAdvised to monitor for possible episodes of raymundo.Jayden romano for escitalopr am 10mg given today. Marijuana user 696783019 F12.90 Advised it may impair wound healing. Recommend cessation Pain of ri ght knee joint [id number] 05720 M25.561 Secondary to recent trauma. Pt's worker's comp in discussion s w/ insurance to determine if they will cover. They rec PT trial before imaging. Pt deferring pending insurance final decision. Remains off from work.Encou raged to f/u w/ her ins & worker's comp.If denied, Pt informed she can transfer this care back to us for management .Given significan t pain weeks out, suspect possible internal ligament injury.Krunal l refer to PT. provided with knee exercises. Potentiall y may require an MRI. Vitamin D below reference range 916566601 E55.9 level of 19 on 06/17. Insufficie ncy. Retest in 2 months.Con tinue Vit D3 Body mass index 40+ - severely obese 856899862 Z68.41 Recommend continued lifestyle modificati ons & exercise >150mins/w kMobility limited at this time. To be addressed further after increased therapeuti c alliance. [id number] MD Shawn Thomas 14 IM 4 [facility] [address] [place] [address] 08/17/2023 11:14:45 08/25/2023 08:31:17 Body mass index 40+ - severely obese 375741923 Z68.41 BMI increased, but measured wearing a hoodie & jeans vs. 2/2 to present mood concerns.R ecommend continued lifestyle modificati ons & exercise >150mins/w k Pain of ri ght knee joint [id number] 12281 M25.561 Secondary to previous trauma w/ fall. Pt previously trying for worker's comp, but endorses poor response. They rec PT trial before imaging. Pt deferred PT pending insurance final decision. Remains off from work. Now endorse she would like to stop worker's comp, and return to work. Pt advised of risks if injury not treated w/ workers comp. Due to limited time, appt for seperate knee eval.Plan: Reeval THWill consider refer to PT. provided with knee exercises. Potentiall y may require an MRI. Generalize d anxiety disorder 74851814 F41.1 Uncontroll ed. Potential 2/2 to inconsiste nt compliance . Adherence encourage & told to contact us next time if emotional concerns.P t given ER, SI & HI precaution s. Major depr essive disorder 995483003 F32.9 Uncontroll ed. Endorses increasing SI. But denies SI presently or plans. Endorses trauma Hx, w/ behave Tx records rec'd.Cont inue dual therapy. Adherence encouraged .Pt continues to informs she prefers management only from one provider & declines psychiatry management .Short interval f/u.Contin ue escitalopr am 10mg.Givin g ER precaution s. Vitamin D below reference range 947551908 E55.9 level of 19 on 06/17. Insufficie ncy. Retest in 1 months.Con tinue Vit D3 Marijuana user 549535134 F12.90 Recommend cessation [id number] MD Shawn GARCIA 14 IM 4 [facility] [address] [place] [address] 08/20/2023 15:20:48 08/26/2023 08:10:34 Pain of right knee joint 1552816051 58212 M25.561 Secondary to previous trauma w/ fall. Pt previously trying for worker's comp, but endorses poor response. They rec PT trial before imaging. Pt deferred PT pending insurance final decision. Remains off from work. Now endorse she would like to stop worker's comp, and return to work. Pt advised of risks if injury not treated w/ workers comp. Knee evaluated w/ marked improvemen t. Potential meniscal sprain present. Will trail conservati ve management w/ PT & knee exercises. Pt requests a trial of resuming employemen t.Plan:Ref er to PT. previously provided with knee exercises. f/u in 4 wks.Potent ially may require an MRI.Advise d of risks of returning to work.Given return precaution s.Given brace during activity pending PT eval. Body mass index 40+ - severely obese 946119675 Z68.41 BMI increased, potentiall y 2/2 to mood concerns.R ecommend continued lifestyle modificati ons & exercise >150mins/w k Generalize d anxiety disorder 99080225 F41.1 Uncontroll ed. Potential 2/2 to inconsiste nt compliance . Adherence encourage & told to contact us next time if emotional concerns.P t given ER, SI & HI precaution s. Major depr essive disorder 435059101 F32.9 Stable today. But denies SI presently or plans. Endorses trauma Hx, w/ behave Tx records rec'd.Cont inue dual therapy. Adherence encouraged .Pt continues to informs she prefers management only from one provider & declines psychiatry management .Short interval f/u.Contin ue escitalopr am 10mg.Sheila pyle ER precaution s.Advised to create a routine for more consistent adherence. Nicotine dependence 5629 4008 F17.200 Recommend cessation [id number] Stella Serna MD Shawn 14 IM 4 [facility] [address] [place] [address] 10/22/2023 11:38:08 10/26/2023 15:00:20 Pain of right knee joint 1942238415 05744 M25.561 Secondary to previous trauma w/ fall. Pt previously trying for worker's comp, but endorses poor response. They rec PT trial before imaging. Pt deferred PT pending insurance final decision. Has returned to work. Potential meniscal sprain present vs. internal derangemen t.Plan:Con tinue to encourage PT.Continu e knee exercises. f/u in 3 months.Pot entially may require an MRI. Pt declines at this timeAdvise d of prison risks if continues to go untreated. Given return precaution s.Will order another brace Body mass index 40+ - severely obese 520363751 Z68.41 Recommend continued lifestyle modificati ons & exercise >150mins/w k Nicotine dependence 5629 4008 F17.200 Recommend cessation Mixed anxi ety and depressive disorder 009222828 F41.8 Stable today. Denies SI presently or plans. Endorses trauma Hx, w/ behave Tx records rec'd.Cont inue dual therapy. Adherence encouraged .Has reconsider ed and started psychiatry .Continue psych management .Continue Aripiprazo le 5mg daily, Buspar 15mg BID & sertraline 50 dailyGivin g ER precaution s. [id number] MD [facility]) [address] [place] [address] 02/19/2024 09:19:40 03/02/2024 16:06:08 Vaginal bleeding complicating early 233940140 O20.9 - Suspect spontaneou s at 5w1d with open cervical os and bedside transvagin al ultrasound showing empty uterus without gestationa l sac- Patient instructed to go to ED if bleeding increases- Will obtain baseline serum hCG today- Advised patient that bleeding should decrease and resolve within 2 weeks. If persistent thereafter , patient to call for appointmen t. Positive s creening for depression on PHQ-9 (Patient Health Questionnaire 9) [id number] 50085 Z13.31 - Patient with chronic passive SI- Seeing therapist weekly- On sertraline , buspirone, aripiprazo le, and trazodone per nurse practition er at [facility] e- Advised patient on suicide hotline 988 if having more active SI Reproducti ve care management 198934732 Z31.69 Z71.1 - 10/24/22: Recommende d use of over the counter ovulation kit to confirm ovulation window and to have intercours e when that occurs. Continue vitamin use. Return to clinic if has had intercours e with ovulatory cycles and is still not getting ; will consider workup for male factor and structural causes of infertilit y.- 02/19/24: Recommende d daily vitamins. May start trying to conceive after miscarriag e whenever she and her partner feel ready. [id number] MD Shawn GARCIA 14 [address] [facility] [address] [place] [address] 04/05/2024 15:46:40 04/28/2024 13:22:44 Morbid obesity 200500855 E66.01 Healthy lifestyle encouraged including regular exercise of at least 150min per week, diet rich in plant based foods and low in added sugars, processed carbohydra ayse, and high salt foods. Encouraged protein intake mostly with chicken and white fish and limited red meat. Generalize d anxiety disorder 50442138 F41.1 Continue buspirone 15 mg t.i.d.Cont inue following with counselor every weekFollow -up in 1 week for a phone visit with Dr. Jimenez ed patient on suicide hotline 988 if having more active SI with a plan Major depr essive disorder 831696192 F32.89 Medication s include Abilify 5 mg daily, sertraline 50 mg daily and trazodone 100 mg at bedtimeMoo d is better after restarting medication sContinue following with counselor every weekFollow -up in 1 week for a phone visit with Dr. Jimenez ed patient on suicide hotline 988 if having more active SI with a plan [id number] MD Shawn Pacheco 14 IM 4 [facility] Dr [address] [place] [address] 04/12/2024 08:42:50 05/02/2024 14:29:07 Mixed anxiety and depressive disorder 139841984 F41.8 Psych took over care Sep 2023. Endorses trauma Hx, w/ behave Tx records rec'd. Exacerbati on March & Nov w/ SI after relationsh ip conflict. Has been given possible bipolar in progress w/o. Likely 2/2 to endorsed non-adhere nce to Tx. Has had post hospital f/u w/ psych w/o plan for close f/u. Declined inPt psych admission during ED visit and was still d/c'd.Plan :Given lack of psych f/u, will do short interval care to avoid abandonmen t.Recommen d reconsider inPt admissionC ontinue dual therapy. Adherence encouraged .Continue psychiatry management . Continue therapy.Co ntinue Aripiprazo le 5mg daily, Buspar 15mg BID & sertraline 50 dailyGivin g ER precaution s. Body mass index 40+ - severely obese 597738967 Z68.41 Recommend continued lifestyle modificati ons & exercise limited given knee pain. Nicotine dependence 5629 4008 F17.200 Recommend cessation Derangemen t of right knee [id number] 3988793 M23.91 Secondary to previous trauma w/ fall. Pt previously trying for worker's comp, but endorses poor response. They rec PT trial before imaging. Pt deferred PT pending insurance final decision. Has returned to work. Potential meniscal sprain present vs. internal derangemen t. Lost to f/u since Oct w/ continued Sx. Has not picked up repeat knee brace. Now has housing challenges .Plan:Brac e ordered Oct 2023 and pendingFur ther PT deferred at this time given psych issuesF/u 1 month.Pote ntially may require an MRI. Pt declines at this timeAdvise d of prison risks if continues to go untreated. Given return precaution s. [id number] MD Venus JOINER ([employer]ESS [employer]ER OPERATOR) [address] [place] [address] 06/03/2024 14:12:29 06/10/2024 12:13:53 detection examination 04874712 Z32.01 - Continue vitamins - chewable sent to pharmacy on file- Pre-eclamp rodolfo prophylaxi s with baby aspirin: indicated for nulliparit y + BMI>30- Advised of signs/symp toms of miscarriag e, when to seek ER evaluation - Recommende d makenna products and OTC doxylamine and vitamin B6 for nausea/vom iting. If no improvemen t, patient to call or send Patient Portal message for prescripti on anti-nause a medication s.- Return to clinic in 2 weeks for initial OB visit with dating US Mixed anxi ety and depressive disorder 425223374 F41.8 - Follows with psychiatry at [facility] in [place]- Reviewed medicine list. Okay to continue sertraline 50 mg daily, buspirone 15 mg TID, hydroxyzin e 50 mg qHS. Benefits outweigh risks for use of aripiprazo le 5 mg daily given ED visit in March for SI and self-harm behaviors. Recommende d holding off on resuming trazodone 100 mg qHS if able to sleep without it.- Will keep close eye on mood/anxie ty throughout - Will refer to [facility] Res[facility] pharmacist at initial OB visit for further medication review [id number] MD Venus JOINER ([employer]ER OPERATOR) [address] [place] [address] 06/24/2024 13:48:09 07/04/2024 13:25:20 Routine care 260518043 Z34.81 Z3A.09 ; FELICIA 01/22/25 based on LMP c/w 9w USSupport person(s): Danis RISK FACTORS / PERTINENT HISTORY- Pre-pregna ncy weight 283 lbs, BMI 47.1- Pre-eclamp rodolfo prophylaxi s: yes - for nulliparit y, BMI- Anxiety/de pression LABS- Due for initial labs VACCINES - counseled on recommende d vaccines on 06/24/24- COVID: due at any time- flu (if in season): due at any time- Tdap: due at 27+ weeks- RSV: due at 32-36 weeks if this GA occurs between Jun to Oct GENETIC TESTING - counseled on limitation s of testing and follow up if needed on 06/24/24- Carrier screen: declined testing on 06/24/24- NIPT: to be ordered at 10+ weeks- AFP: to be ordered between 15-20 weeks IMAGING- Dating US: 9w5d on 06/24/24, avg CRL 2.85 cm- Anatomy US: to be performed between 18-22 weeks DELIVERY PREFERENCE S- Delivery plan: anticipate - Pain management : TBD- feeding: breastfeed ing- Desires circumcisi on: TBD- contracept ion: TBD Maternal o besity complicating , childbirth and the puerperium, antepartum 2030371803 07 O99.211 - Pre-pregna ncy weight 283 lbs, BMI 47.1 - Recommende d weight gain during : 11-20 lbs - Needs surveillan ce (NST+FAZAL or BPP) weekly at 34w0d - Given ACOG handout on obesity in with informatio n on healthy diet and physical activity during Mixed anxi ety and depressive disorder 494943793 F41.8 - Follows with PMHNP at [facility] in [place]- Will keep close eye on mood/anxie ty throughout - 06/03/24: Reviewed medicine list. Okay to continue sertraline 50 mg daily, buspirone 15 mg TID, hydroxyzin e 50 mg qHS. Benefits outweigh risks for use of aripiprazo le 5 mg daily given ED visit in March for SI and self-harm behaviors. Recommende d holding off on resuming trazodone 100 mg qHS if able to sleep without it.- 06/24/24: Advised patient that I recommend continuing her medication s as discussed at her last visit, as benefits of treated depression outweigh risks of untreated depression and possible medication effects on fetus. Patient voiced understand ing. Medication s sent to pharmacy on file. Referred to [facility] Residency pharmacist on 06/24/24 for further medication review. Vitamin D below reference range 932627774 E55.9 - f/u vitamin D level [id number] [facility]) [address] [place] [address] 07/22/2024 14:54:13 08/05/2024 14:22:19 Routine care 407660058 Z34.81 Z3A.13 LABS- Routine labs: Initial OB panel with varicella immunity testing- Additional labs: Baseline PIH labs, A1c VACCINES - counseled on recommende d vaccines on 06/24/24- COVID: declined- flu (if in season): declined- Tdap: due at 27+ weeks- RSV: due at 32-36 weeks if this GA occurs between Jun to Oct GENETIC TESTING - counseled on limitation s of testing and follow up if needed on 06/24/24- Carrier screen: declined testing on 06/24/24- NIPT: ordered 07/22/24 at 13w5d;want s sex of baby placed in envelope for gender reveal- AFP: to be ordered between 15-20 weeks IMAGING- Dating US: 9w5d on 06/24/24, avg CRL 2.85 cm- Anatomy US: to be performed between 18-22 weeks Mixed anxi ety and depressive disorder 843458178 F41.8 - Follows with PMHNP at [facility]- Will keep close eye on mood/anxie ty throughout - 06/03/24: Reviewed medicine list. Okay to continue sertraline 50 mg daily, buspirone 15 mg TID, hydroxyzin e 50 mg qHS. Benefits outweigh risks for use of aripiprazo le 5 mg daily given ED visit in March for SI and self-harm behaviors. Recommende d holding off on resuming trazodone 100 mg qHS if able to sleep without it.- 06/24/24: Advised patient that I recommend continuing her medication s as discussed at her last visit, as benefits of treated depression outweigh risks of untreated depression and possible medication effects on fetus. Patient voiced understand ing. Medication s sent to pharmacy on file. Referred to [facility] Residency pharmacist on 06/24/24 for further medication review.- 07/22/24: Patient states she is not taking psych meds due to fear of harming the baby. Maternal o besity complicating , childbirth and the puerperium, antepartum 9190648109 07 O99.211 - Pre-pregna ncy weight 283 lbs, BMI 47.1- Recommende d weight gain during : 11-20 lbs- Needs surveillan ce (NST+FAZAL or BPP) weekly at 34w0d- Given ACOG handout on obesity in with informatio n on healthy diet and physical activity during - f/u A1c to evaluate for pregestati onal diabetes Elevated blood-pressure reading without diagnosis of hypertension 438272215 R03.0 - BP 130/82 at 13w; baseline PIH labs ordered [id number] MD [facility] ([facility]PER[employer]) [address] [place] [address] 08/19/2024 14:06:55 08/25/2024 16:20:41 Routine care 049780066 Z34.82 Z3A.17 LABS- Routine labs: Up to date- Additional labs: N/A VACCINES - counseled on recommende d vaccines on 06/24/24- COVID: declined- flu (if in season): declined- Tdap: due at 27+ weeks- RSV: due at 32-36 weeks if this GA occurs between Jun to Oct GENETIC TESTING - counseled on limitation s of testing and follow up if needed on 06/24/24- Carrier screen: declined testing on 06/24/24- NIPT: neg;wants sex of baby placed in envelope for gender reveal- AFP: ordered on 08/19/24 at 17w5d IMAGING- Dating US: 9w5d on 06/24/24, avg CRL 2.85 cm- Anatomy US: to be performed between 18-22 weeks; ordered 08/19/24 Mixed anxi ety and depressive disorder 321238414 F41.8 - Follows with PMHNP at [facility] in [place]- Will keep close eye on mood/anxie ty throughout - 06/03/24: Reviewed medicine list. Okay to continue sertraline 50 mg daily, buspirone 15 mg TID, hydroxyzin e 50 mg qHS. Benefits outweigh risks for use of aripiprazo le 5 mg daily given ED visit in March for SI and self-harm behaviors. Recommende d holding off on resuming trazodone 100 mg qHS if able to sleep without it.- 06/24/24: Advised patient that I recommend continuing her medication s as discussed at her last visit, as benefits of treated depression outweigh risks of untreated depression and possible medication effects on fetus. Patient voiced understand ing. Medication s sent to pharmacy on file. Referred to [facility] Residency pharmacist on 06/24/24 for further medication review.- 07/22/24: Patient states she is not taking psych meds due to fear of harming the baby.- 08/19/24: Patient will discuss medication s with Judy MarieD at upcoming phone visit on 08/23/24. Maternal o besity complicating , childbirth and the puerperium, antepartum 9718678910 07 O99.211 - Pre-pregna ncy weight 283 lbs, BMI 47.1- Recommende d weight gain during : 11-20 lbs- Needs surveillan ce (NST+FAZAL or BPP) weekly at 34w0d- Given ACOG handout on obesity in with informatio n on healthy diet and physical activity during - A1c at 13 weeks: 5.0% Elevated blood-pressure reading without diagnosis of hypertension 115223321 R03.0 - BP 130s/80s at 13w and 17w visits- Normal baseline PIH labs- Prescribed baby aspirin for pre-E PPx but is not taking Varicella non-immune 371 280145 Z78.9 - Needs varicella vaccine after delivery and 4-8 weeks Vitamin D deficiency 347 11163 E55.9 - Vitamin D level 15.7 -> 18.0- Will start additional 1000 IU vitamin D3 throughout [id number] MD Venus JOINER (CENTERLESS GR[employer]ER OPERATOR) [address] [place] [address] 09/16/2024 11:26:04 09/21/2024 15:36:57 Routine care 145097815 Z34.82 Z3A.21 LABS- Routine labs: Up to date- Additional labs: N/A VACCINES - counseled on recommende d vaccines on 06/24/24- COVID: declined- flu (if in season): declined- Tdap: due at 27+ weeks- RSV: due at 32-36 weeks if this GA occurs between Jun to Oct GENETIC TESTING - counseled on limitation s of testing and follow up if needed on 06/24/24- Carrier screen: declined testing on 06/24/24- NIPT: neg- AFP: neg IMAGING- Dating US: 9w5d on 06/24/24, avg CRL 2.85 cm- Anatomy US: to be performed between 18-22 weeks; ordered 08/19/24 and scheduled for 09/19/24 Mixed anxi ety and depressive disorder 605926533 F41.8 - Follows with PMHNP at [facility] in [place]- Will keep close eye on mood/anxie ty throughout - 09/16/24: Now taking sertraline and aripiprazo le after reassuranc e from PharmD. Mood stable. Maternal o besity complicating , childbirth and the puerperium, antepartum [id number] 07 O99.211 - Pre-pregna ncy weight 283 lbs, BMI 47.1- Recommende d weight gain during : 11-20 lbs- Needs surveillan ce (NST+FAZAL or BPP) weekly at 34w0d- Given ACOG handout on obesity in with informatio n on healthy diet and physical activity during - A1c at 13 weeks: 5.0% Elevated blood-pressure reading without diagnosis of hypertension 028566844 R03.0 - BP 130s/80s at 13w and 17w visits. BP wnl at 21 weeks.- Normal baseline PIH labs- Prescribed baby aspirin for pre-E PPx. Has started taking since visit with PharmD in August. Varicella non-immune 371 869323 Z78.9 - Needs varicella vaccine after delivery and 4-8 weeks Vitamin D deficiency 347 24984 E55.9 - Vitamin D level 15.7 -> 18.0 [id number] MD [facility] ([facility]) [address] [place] [address] 10/07/2024 11:22:35 10/10/2024 18:06:06 Routine care 741940402 Z34.82 Z3A.24 LABS- Routine labs: 2nd trimester labs: 1h GTT, Hgb/Hct- Additional labs: N/A VACCINES - counseled on recommende d vaccines on 06/24/24- COVID: declined- flu (if in season): declined- Tdap: due at 27+ weeks- RSV: due at 32-36 weeks if this GA occurs between Jun to Oct GENETIC TESTING - counseled on limitation s of testing and follow up if needed on 06/24/24- Carrier screen: declined testing on 06/24/24- NIPT: neg- AFP: neg IMAGING- Dating US: 9w5d on 06/24/24, avg CRL 2.85 cm- Anatomy US: to be performed between 18-22 weeks; ordered 08/19/24 and scheduled for 09/19/24 Mixed anxi ety and depressive disorder [id number] F41.8 - Follows with PMHNP at [facility] in [place]- Will keep close eye on mood/anxie ty throughout - 09/16/24: Now taking sertraline and aripiprazo le after reassuranc e from PharmD. Mood stable. Maternal o besity complicating , childbirth and the puerperium, antepartum [id number] 07 O99.211 - Pre-pregna ncy weight 283 lbs, BMI 47.1- Recommende d weight gain during : 11-20 lbs- Needs surveillan ce (NST+FAZAL or BPP) weekly at 34w0d- Given ACOG handout on obesity in with informatio n on healthy diet and physical activity during - A1c at 13 weeks: 5.0% Elevated blood-pressure reading without diagnosis of hypertension [id number] R03.0 - BP 130s/80s at 13w and 17w visits. BP wnl at 21 weeks.- Normal baseline PIH labs- Prescribed baby aspirin for pre-E PPx. Has started taking since visit with PharmD in August. Varicella non-immune [id number] Z78.9 - Needs varicella vaccine after delivery and 4-8 weeks Vitamin D deficiency 347 65985 E55.9 - Vitamin D level 15.7 -> 18.0 Patient not examined [id number] Z53.9 Physician on OB call and called away for a delivery. [id number] [facility] ([employer]) [address] [place] [address] 10/11/2024 16:04:17 10/12/2024 14:46:11 Routine care [id number] Z34.82 Z3A.25 LABS- Routine labs: Up to date Initi al OB panel with varicella immunity testing 2n d trimester labs: 1h GTT, Hgb/Hct 3r d trimester labs: HIV, RPR 36 week labs: GBS swab 2nd trimester labs: Hgb/Hct- Additional labs: N/A VACCINES - counseled on recommende d vaccines on 06/24/24- COVID: declined- flu (if in season): declined- Tdap: due at 27+ weeks- RSV: due at 32-36 weeks if this GA occurs between Jun to Oct GENETIC TESTING - counseled on limitation s of testing and follow up if needed on 06/24/24- Carrier screen: declined testing on 06/24/24- NIPT: neg- AFP: neg IMAGING- Dating US: 9w5d on 06/24/24, avg CRL 2.85 cm- Anatomy US, 09/19/24: EFW 532g (53%ile), cephalic presentati on, posterior placenta without previa, normal cervical length, FAZAL 18.9 cm; mild pelviectas is and incomplete ly seen interventr icular septum; recommend level 3 ultrasound to follow up- Follow up US, scheduled 10/14/24 Mixed anxi ety and depressive disorder [id number] F41.8 - Follows with PMHNP at [facility] in [place]- Will keep close eye on mood/anxie ty throughout - 09/16/24: Now taking sertraline and aripiprazo le after reassuranc e from PharmD. Mood stable. Maternal o besity complicating , childbirth and the puerperium, antepartum [id number] 07 O99.211 - Pre-pregna ncy weight 283 lbs, BMI 47.1- Recommende d weight gain during : 11-20 lbs- Needs surveillan ce (NST+FAZAL or BPP) weekly at 34w0d- Given ACOG handout on obesity in with informatio n on healthy diet and physical activity during - A1c at 13 weeks: 5.0% Elevated blood-pressure reading without diagnosis of hypertension [id number] R03.0 - BP 130s/80s at 13w and 17w visits. BP wnl at 21 weeks and 25 weeks.- Normal baseline PIH labs- Prescribed baby aspirin for pre-E PPx. Has started taking since visit with PharmD in August. Varicella non-immune 371 [id number] Z78.9 - Needs varicella vaccine after delivery and 4-8 weeks Vitamin D deficiency 347 96968 E55.9 - Vitamin D level 15.7 -> 18.0 [id number] SAMRA MORENO MD [facility] (C[employer] GR[employer]ER OPERATOR) [address] [place] [address] 10/28/2024 16:24:19 11/04/2024 15:43:14 Routine care 210414534 Z34.82 Z3A.27 LABS- Routine labs: Up to date Initi al OB panel with varicella immunity testing 2n d trimester labs: 1h GTT, Hgb/Hct 3r d trimester labs: HIV, RPR 36 week labs: GBS swab 2nd trimester labs: Hgb/Hct- Additional labs: N/A VACCINES - counseled on recommende d vaccines on 06/24/24- COVID: declined- flu (if in season): declined- Tdap: due at 27+ weeks- RSV: N/A - out of season at 32w-36w GENETIC TESTING - counseled on limitation s of testing and follow up if needed on 06/24/24- Carrier screen: declined testing on 06/24/24- NIPT: neg- AFP: neg IMAGING- Dating US: 9w5d on 06/24/24, avg CRL 2.85 cm- Anatomy US, 09/19/24: EFW 532g (53%ile), cephalic presentati on, posterior placenta without previa, normal cervical length, FAZAL 18.9 cm; mild pelviectas is and incomplete ly seen interventr icular septum; recommend level 3 ultrasound to follow up- Follow up US, 10/21/24: EFW 1097g (73%ile), breech presentati on; multiple inadequate views - recommend 4 week follow up for growth and to complete the anatomic survey- Follow up US, scheduled 11/18/24 Mixed anxi ety and depressive disorder [id number] F41.8 - Follows with PMHNP at [facility] in [place]- Will keep close eye on mood/anxie ty throughout - 09/16/24: Now taking sertraline and aripiprazo le after reassuranc e from PharmD. Mood stable. Maternal o besity complicating , childbirth and the puerperium, antepartum [id number] 07 O99.211 - Pre-pregna ncy weight 283 lbs, BMI 47.1- Recommende d weight gain during : 11-20 lbs- Needs surveillan ce (NST+FAZAL or BPP) weekly at 34w0d- Given ACOG handout on obesity in with informatio n on healthy diet and physical activity during - A1c at 13 weeks: 5.0% Elevated blood-pressure reading without diagnosis of hypertension 455325016 R03.0 - BP 130s/80s at 13w and 17w visits. BP wnl at 21 weeks and 25 weeks.- Normal baseline PIH labs- Prescribed baby aspirin for pre-E PPx. Has started taking since visit with PharmD in August. Varicella non-immune 371 101968 Z78.9 - Needs varicella vaccine after delivery and 4-8 weeks Vitamin D deficiency 347 36306 E55.9 - Vitamin D level 15.7 -> 18.0 [id number] MD Venus JOINER (CENTER[employer]ESS GR[employer]ER OPERATOR) [address] [place] [address] 11/11/2024 16:29:33 11/14/2024 10:20:43 Routine care [id number] Z34.83 Z3A.29 LABS- Routine labs: Up to date Initi al OB panel with varicella immunity testing 2n d trimester labs: 1h GTT, Hgb/Hct 3r d trimester labs: HIV, RPR 36 week labs: GBS swab 2nd trimester labs: Hgb/Hct - collected today- Additional labs: N/A VACCINES - counseled on recommende d vaccines on 06/24/24- COVID: declined- flu (if in season): declined- Tdap: given 11/11/24- RSV: N/A - out of season at 32w-36w GENETIC TESTING - counseled on limitation s of testing and follow up if needed on 06/24/24- Carrier screen: declined testing on 06/24/24- NIPT: neg- AFP: neg IMAGING- Dating US: 9w5d on 06/24/24, avg CRL 2.85 cm- Anatomy US, 09/19/24: EFW 532g (53%ile), cephalic presentati on, posterior placenta without previa, normal cervical length, FAZAL 18.9 cm; mild pelviectas is and incomplete ly seen interventr icular septum; recommend level 3 ultrasound to follow up- Follow up US, 10/21/24: EFW 1097g (73%ile), breech presentati on; multiple inadequate views - recommend 4 week follow up for growth and to complete the anatomic survey- Follow up US, scheduled 11/18/24 Mixed anxi ety and depressive disorder [id number] F41.8 - Follows with PMHNP at [facility] in [place]- Will keep close eye on mood/anxie ty throughout - 09/16/24: Now taking sertraline and aripiprazo le after reassuranc e from PharmD. Mood stable. Maternal o besity complicating , childbirth and the puerperium, antepartum [id number] 07 O99.211 - Pre-pregna ncy weight 283 lbs, BMI 47.1- Recommende d weight gain during : 11-20 lbs- Needs surveillan ce (NST+FAZAL or BPP) weekly at 34w0d- Given ACOG handout on obesity in with informatio n on healthy diet and physical activity during - A1c at 13 weeks: 5.0% Elevated blood-pressure reading without diagnosis of hypertension 533749418 R03.0 - BP 130s/80s at 13w and 17w visits. BP wnl at 21 weeks and 25 weeks.- Normal baseline PIH labs- Prescribed baby aspirin for pre-E PPx. Has started taking since visit with PharmD in August. Varicella non-immune 371 498654 Z78.9 - Needs varicella vaccine after delivery and 4-8 weeks Vitamin D deficiency 347 09248 E55.9 - Vitamin D level 15.7 -> 18.0 Administra tion of diphtheria, pertussis, and tetanus vaccine 571215668 Z23 Acute vaginitis 63881442 N76.0 - DDx: BV vs yeast vs STI (NG vs CT vs TV)- Will treat empiricall y with fluconazol e 150 mg once- f/u NuSwab; will treat as indicated by results [id number] MD Venus JOINER (CENTERLESS GR[employer]ER OPERATOR) [address] [place] [address] 11/25/2024 14:45:50 11/28/2024 11:52:23 Routine care 987639712 Z34.83 Z3A.31 LABS- Routine labs: Up to date- Additional labs: N/A VACCINES - counseled on recommende d vaccines on 06/24/24- COVID: declined- flu (if in season): declined- Tdap: given 11/11/24- RSV: N/A - out of season at 32w-36w GENETIC TESTING - counseled on limitation s of testing and follow up if needed on 06/24/24- Carrier screen: declined testing on 06/24/24- NIPT: neg- AFP: neg IMAGING- Dating US: 9w5d on 06/24/24, avg CRL 2.85 cm- Anatomy US, 09/19/24: EFW 532g (53%ile), cephalic presentati on, posterior placenta without previa, normal cervical length, FAZAL 18.9 cm; mild pelviectas is and incomplete ly seen interventr icular septum; recommend level 3 ultrasound to follow up- Follow up US, 10/21/24: EFW 1097g (73%ile), breech presentati on; multiple inadequate views - recommend 4 week follow up for growth and to complete the anatomic survey- Follow up US, 11/18/24: EFW 1976g (89%ile), cephalic presentati on, FAZAL 15.4 cm, anatomy US completed and wnl; repeat in 4 weeks for growth US- Follow up US, 12/16/24: growth US scheduled Mixed anxi ety and depressive disorder [id number] F41.8 - Follows with PMHNP at [facility] in [place]- Will keep close eye on mood/anxie ty throughout - 09/16/24: Now taking sertraline and aripiprazo le after reassuranc e from PharmD. Mood stable.- 11/25/2024: Not taking medicines regularly, again concerned about well-being . No SI/HI. Maternal o besity complicating , childbirth and the puerperium, antepartum [id number] 07 O99.211 - Pre-pregna ncy weight 283 lbs, BMI 47.1- Recommende d weight gain during : 11-20 lbs- Needs surveillan ce (NST+FAZAL or BPP) weekly at 34w0d- Given ACOG handout on obesity in with informatio n on healthy diet and physical activity during - A1c at 13 weeks: 5.0% Elevated blood-pressure reading without diagnosis of hypertension 436145593 R03.0 - BP 130s/80s at 13w and 17w visits. BP wnl thereafter - Normal baseline PIH labs- Prescribed baby aspirin for pre-E PPx. Has started taking since visit with PharmD in August. Varicella non-immune 371 160081 Z78.9 - Needs varicella vaccine after delivery and 4-8 weeks Vitamin D deficiency 347 27820 E55.9 - Vitamin D level 15.7 -> 18.0 [id number] MD Venus JOINER (CENTERLESS GRINDER OPERATOR) [address] [place] [address] 12/09/2024 15:55:36 12/15/2024 09:41:22 Routine care 002200603 Z34.83 Z3A.33 LABS- Routine labs: Up to date- Additional labs: N/A VACCINES - counseled on recommende d vaccines on 06/24/24- COVID: declined- flu (if in season): declined- Tdap: given 11/11/24- RSV: N/A - out of season at 32w-36w GENETIC TESTING - counseled on limitation s of testing and follow up if needed on 06/24/24- Carrier screen: declined testing on 06/24/24- NIPT: neg- AFP: neg IMAGING- Dating US: 9w5d on 06/24/24, avg CRL 2.85 cm- Anatomy US, 09/19/24: EFW 532g (53%ile), cephalic presentati on, posterior placenta without previa, normal cervical length, FAZAL 18.9 cm; mild pelviectas is and incomplete ly seen interventr icular septum; recommend level 3 ultrasound to follow up- Follow up US, 10/21/24: EFW 1097g (73%ile), breech presentati on; multiple inadequate views - recommend 4 week follow up for growth and to complete the anatomic survey- Follow up US, 11/18/24: EFW 1976g (89%ile), cephalic presentati on, FAZAL 15.4 cm, anatomy US completed and wnl; repeat in 4 weeks for growth US- Follow up US, 12/16/24: growth US scheduled Mixed anxi ety and depressive disorder [id number] F41.8 - Follows with PMHNP at [facility] in [place]- Will keep close eye on mood/anxie ty throughout - 09/16/24: Now taking sertraline and aripiprazo le after reassuranc e from PharmD. Mood stable.- 11/25/2024: Not taking medicines regularly, again concerned about well-being . No SI/HI. Maternal o besity complicating , childbirth and the puerperium, antepartum 0545610250 07 O99.213 - Pre-pregna ncy weight 283 lbs, BMI 47.1- Recommende d weight gain during : 11-20 lbs- Needs surveillan ce (NST+FAZAL or BPP) weekly at 34w0d- Given ACOG handout on obesity in with informatio n on healthy diet and physical activity during - A1c at 13 weeks: 5.0% Elevated blood-pressure reading without diagnosis of hypertension 886904199 R03.0 - BP 130s/80s at 13w and 17w visits. BP wnl thereafter until visit on 12/09/24- Normal baseline PIH labs- Prescribed baby aspirin for pre-E PPx. Has started taking since visit with PharmD in August. Varicella non-immune 371 649221 Z78.9 - Needs varicella vaccine after delivery and 4-8 weeks Vitamin D deficiency 347 80315 E55.9 - Vitamin D level 15.7 -> 18.0 [id number] [facility] ([employer]ER OPERATOR) [address] [place] [address] 12/22/2024 14:54:12 12/27/2024 16:36:14 Routine care 188723342 Z34.83 Z3A.35 LABS- Routine labs: 3rd trimester labs: HIV, RPR- Additional labs: N/A VACCINES - counseled on recommende d vaccines on 06/24/24- COVID: declined- flu (if in season): declined- Tdap: given 11/11/24- RSV: N/A - out of season at 32w-36w GENETIC TESTING - counseled on limitation s of testing and follow up if needed on 06/24/24- Carrier screen: declined testing on 06/24/24- NIPT: neg- AFP: neg IMAGING- Dating US: 9w5d on 06/24/24, avg CRL 2.85 cm- Anatomy US, 09/19/24: EFW 532g (53%ile), cephalic presentati on, posterior placenta without previa, normal cervical length, FAZAL 18.9 cm; mild pelviectas is and incomplete ly seen interventr icular septum; recommend level 3 ultrasound to follow up- Follow up US, 10/21/24: EFW 1097g (73%ile), breech presentati on; multiple inadequate views - recommend 4 week follow up for growth and to complete the anatomic survey- Follow up US, 11/18/24: EFW 1976g (89%ile), cephalic presentati on, FAZAL 15.4 cm, anatomy US completed and wnl; repeat in 4 weeks for growth US- Follow up US, 12/16/24: BPP 07/14. EFW 2852g (6# 5oz, 83%ile). AC 92%ile. Normal amniotic fluid volume. Continue weekly BPP; repeat growth US in 3-4 weeks if undelivere d.- Follow up US, 12/23/24: scheduled US and NST Mixed anxi ety and depressive disorder 229377230 F41.8 - Follows with PMHNP at [facility] in [place]- Will keep close eye on mood/anxie ty throughout - 09/16/24: Now taking sertraline and aripiprazo le after reassuranc e from PharmD. Mood stable.- 11/25/2024: Not taking medicines regularly, again concerned about well-being . No SI/HI. Maternal o besity complicating , childbirth and the puerperium, antepartum [id number] 07 O99.213 - Pre-pregna ncy weight 283 lbs, BMI 47.1- Recommende d weight gain during : 11-20 lbs- Needs surveillan ce (NST+FAZAL or BPP) weekly at 34w0d- Given ACOG handout on obesity in with informatio n on healthy diet and physical activity during - A1c at 13 weeks: 5.0% Elevated blood-pressure reading without diagnosis of hypertension 742509806 R03.0 - BP 130s/80s at 13w and 17w visits. BP wnl thereafter until visit on 12/09/24- Normal baseline PIH labs- Prescribed baby aspirin for pre-E PPx. Has started taking since visit with PharmD in August.- 12/15/24: Seen in OB triage for rule-out SROM. Had elevated BPs during visit. PIH labs showed UPCR 269.9 (H). Discharged with BP cuff for home monitoring .- 12/22/24: Sent BP cuff to preferred pharmacy in [place]. Varicella non-immune 371 139937 Z78.9 - Needs varicella vaccine after delivery and 4-8 weeks Vitamin D deficiency 347 80252 E55.9 - Vitamin D level 15.7 -> 18.0 [id number] MD Venus JOINER (CENTERLESS GRINDER OPERATOR) [address] [place] [address] 01/06/2025 14:46:08 01/31/2025 14:07:33 Routine care 304293821 Z34.83 Z3A.37 LABS- Routine labs: 36 week labs: GBS swab- Additional labs: N/A VACCINES - counseled on recommende d vaccines on 06/24/24- COVID: declined- flu (if in season): declined- Tdap: given 11/11/24- RSV: N/A - out of season at 32w-36w GENETIC TESTING - counseled on limitation s of testing and follow up if needed on 06/24/24- Carrier screen: declined testing on 06/24/24- NIPT: neg- AFP: neg IMAGING- Dating US: 9w5d on 06/24/24, avg CRL 2.85 cm- Anatomy US, 09/19/24: EFW 532g (53%ile), cephalic presentati on, posterior placenta without previa, normal cervical length, FAZAL 18.9 cm; mild pelviectas is and incomplete ly seen interventr icular septum; recommend level 3 ultrasound to follow up- Follow up US, 10/21/24: EFW 1097g (73%ile), breech presentati on; multiple inadequate views - recommend 4 week follow up for growth and to complete the anatomic survey- Follow up US, 11/18/24: EFW 1976g (89%ile), cephalic presentati on, FAZAL 15.4 cm, anatomy US completed and wnl; repeat in 4 weeks for growth US- Follow up US, 12/16/24: BPP 07/14. EFW 2852g (6# 5oz, 83%ile). AC 92%ile. Normal amniotic fluid volume. Continue weekly BPP; repeat growth US in 3-4 weeks if undelivere d.- Follow up US, 12/23/24: scheduled US and NST Mixed anxi ety and depressive disorder 532903546 F41.8 - Follows with PMHNP at [facility] in [place]- Will keep close eye on mood/anxie ty throughout - 09/16/24: Now taking sertraline and aripiprazo le after reassuranc e from PharmD. Mood stable.- 11/25/2024: Not taking medicines regularly, again concerned about well-being . No SI/HI. Maternal o besity complicating , childbirth and the puerperium, antepartum 5262375347 07 O99.213 - Pre-pregna ncy weight 283 lbs, BMI 47.1- Recommende d weight gain during : 11-20 lbs- Needs surveillan ce (NST+FAZAL or BPP) weekly at 34w0d- Given ACOG handout on obesity in with informatio n on healthy diet and physical activity during - A1c at 13 weeks: 5.0% Elevated blood-pressure reading without diagnosis of hypertension 252936767 R03.0 - BP 130s/80s at 13w and 17w visits. BP wnl thereafter until visit on 12/09/24- Normal baseline PIH labs- Prescribed baby aspirin for pre-E PPx. Has started taking since visit with PharmD in August.- 12/15/24: Seen in OB triage for rule-out SROM. Had elevated BPs during visit. PIH labs showed UPCR 269.9 (H). Discharged with BP cuff for home monitoring .- 12/22/24: Sent BP cuff to preferred pharmacy in [place]. Varicella non-immune 371 896388 Z78.9 - Needs varicella vaccine after delivery and 4-8 weeks Vitamin D deficiency 347 34424 E55.9 - Vitamin D level 15.7 -> 18.0 [id number] MD Venus JOINER (CENTERLESS GR[employer]ER OPERATOR) [address] [place] [address] 01/31/2025 15:11:01 02/01/2025 16:37:56 care status 053727150 Z39.2 - Continue routine care- EDPS score: 9- Contracept ion plan: Sprintec at 6w visit Mixed anxi ety and depressive disorder 946953050 F41.8 - Continue home medication s as prescribed by PMHNP: aripiprazo le 5 mg daily, buspirone 15 mg 3 times daily as needed, and sertraline 50 mg daily Varicella non-immune 371 432659 Z78.9 - Varicella vaccine not given prior to discharge from hospital [id number] MD Venus JOINER (CENTERLESS GR[employer]ER OPERATOR) [address] [facility] [place] [address] 02/21/2025 15:09:36 02/28/2025 10:56:48 care status 036169427 Z39.2 - Continue routine care- EDPS score: 12- Contracept ion plan: Sprintec Mixed anxi ety and depressive disorder 462097501 F41.8 - Continue home medication s as prescribed by PMHNP: aripiprazo le 5 mg daily, buspirone 15 mg 3 times daily as needed, and sertraline 50 mg daily Varicella non-immune 371 718115 Z78.9 - Varicella vaccine not given prior to discharge from hospital- 02/21/25: Patient declines vaccinatio n Initial pr escription of oral contraception 063353387 Z30.011 - Restarted home Sprintec. No history of migraines or bleeding/c lotting disorders. - Advised backup method for 7 days after starting control Health Concerns Section Related Observation LastModified by Organization Detai ls LastModified Time None Recorded Concern Status LastModified by Organization Details LastModified Time None Recorded Advance Directives Directive N: Payers Encounter Date Sequence Insurance Name Policy Number Policy [place] Covered Member ID [place] Member ID Guarantor Name 12/09/2024 1 [facility] ON OR AFTER 04/04/21 (MEDICAID REPLACEMENT - HMO) Jazmin Ospina [id number] Jazmin Ospina 12/22/2024 1 [facility] ON OR AFTER 04/04/21 (MEDICAID REPLACEMENT - HMO) Jazmin Ospina [id number] Jazmin Ospina 01/06/2025 1 [facility] ON OR AFTER 04/04/21 (MEDICAID REPLACEMENT - HMO) Jazmin Ospina [id number] Jazmin Ospina 01/31/2025 1 [facility] ON OR AFTER 04/04/21 (MEDICAID REPLACEMENT - HMO) Jazmin Ospina [id number] Jazmin Ospina 02/21/2025 1 [facility] ON OR AFTER 04/04/21 (MEDICAID REPLACEMENT - HMO) Jazmin Ospina [id number] Jazmin Ospnia Notes Date Note Type Note Provider Name and Address Organization Details Recorded Time 12/09/2024 text/html See OB worksheet SAMRA MORENO MD Attn: [address] [place], [address], [facility] 12/13/2024 10:16:33 12/22/2024 text/html See OB worksheet SAMRA MORENO MD Attn: [address] [place], [address], [facility] 12/22/2024 15:53:25 01/06/2025 text/html See OB worksheet SAMRA MORENO MD Attn: [address] [place], [address], [facility] 01/31/2025 10:19:58 01/31/2025 text/html visit - Date of delivery: 01/13/2025- Type of delivery: - complications: anx/dep/ADHD, elevated BP w/o gHTN, obesity, varicella non-immune- Labor complications: pre-eclampsia with severe-range BPs- Delivery complications: vaginal and labial lacerations - Concerns today: Feels overwhelmed with pumping and not getting a lot of milk. Does not have a lot of support at home. Mom and best friend live about 30 minutes away. Boyfriend does not help as much when he comes home from work.- Lochia: Very light, brown discharge- Signs/symptoms of preeclampsia: Headaches for past few days- Mood: Better- Stress level: Feels stressed. By self during the day.- Resumed intercourse? No - Problems with intercourse? N/A- Contraception plan: Sprintec - feeding: Breast and formula SAMRA MORENO MD Attn: [address] , [place], [address], [facility] 01/31/2025 18:13:00 02/21/2025 text/html visit - Date of delivery: 01/13/2025- Type of delivery: - complications: anx/dep/ADHD, elevated BP w/o gHTN, obesity, varicella non-immune- Labor complications: pre-eclampsia with severe-range BPs- Delivery complications: vaginal and labial lacerations - Concerns today: None- Lochia: Had first period on 02/17/25. Lots of clots and heavy for 2-3 days; filled up a Depends diaper within a few hours. Normal period cramping.- Signs/symptoms of preeclampsia: Gets headaches at times in the front of her forehead; improves with Tylenol, ibuprofen, sleep- Mood: A lot better; taking medicine regularly- Stress level: Like a roller coaster- Resumed intercourse? Yes - Problems with intercourse? No- Contraception plan: Sprintec - Infant feeding: Formula SAMRA MORENO MD Attn: [address]ing[address], [place], [address], [place] [facility] 02/21/2025 18:01:48 OBGyn Episode Ob Episode Information Episode Created Date Number of Fetuses Patient Bloodtype Patient rh Status Prepregnancy Weight lbs Domestic Partner Domestic Partner Phone Father Name Angiography Nurse Status 06/24/20 24 1 O Positive 283 Danis Nicholson CLOSED Fetus Data First Name Last Name Admitted to NICU Weight (g) Sex Living Outcome Pediatric Complications Fetus ID Race Codes Race Delivery Type [address] false [phone] [id number] M true Full Term [id number] declin ed Patie nt Decli vaibhav Vaginal Problems Problem Notes RISK FACTORS / PERTINENT HX- , FELICIA 01/22/25 by LMP c/w 9w US- Pre-preg BMI 47.1, weight 283# - rec'd 11-20# wt gain- Indication for preE PPx: nulliparity, BMI>30DELIVERY/ PLAN- Support person: Danis- Anticipated delivery: - GBS PPx? TBD- Pain mgmt: unsure - maybe epidural- Contraception: OCPsNEWBORN INFO- Sex: male- Name: Logan- Feeding: breast- Desires circumcision: yes- Doctor: TBD- Maternal RSV vaccine given? N/A - out of season Problem Name Start Date End Date Resolution Snomed Code Not e Vitamin D deficiency 07/26/2024 [id number] Varicella non-immune 07/26/2024 [id number] 9 needs varicella vaccine after delivery and 4-8 weeks Elevated blood-pressure reading without diagnosis of hypertension 08/18/2024 [id number] BP in 130s/80s during 1st and early 2nd trimester. Normal baseline PIH labs. Prescribed baby aspirin for pre-E prophylaxis. Repeat PIH labs during OB triage visit on 12/15/24 showed indeterminate range UPCR of 269.9; discharged with home BP cuff for home monitoring. Maternal obesity complicating , childbirth and the puerperium, antepartum 07/21/2024 [id number] Pre-preg BMI 47 .1, pre-preg weight 283 lbs. Recommended 11-20 lb weight gain. Weekly surveillance starting at 34w0d ordered 12/09/24. Mixed anxiety and depressive disorder 05/01/2024 [id number] Inconsis tently taking sertraline and aripiprazole since 08/2024 after additional reassurance from PharmD that benefits outweigh risks. Felicia Calculation Initial Felicia Date Initial Exam Date Initial Exam Provider Initial Ultrasound Date Last Menstrual Period Date Ultra Sound Weeks Gestation 01/22/2025 06/24/2024 [email or web address] 06/24/2024 04/17/2024 9 Eighteen To Twenty Week Felicia Update Ultra Sound Date Fundal Height At Umbil Quickening Date Ultra Sound Latest Weeks Gestation Final Felicia Confirmed By Final Felicia Confirmed Date Final Felicia Date Ultra Sound Latest Days Gestation 0 [email or web address] 06/24/2024 01/23/20 0 Pre-alondra Flowsheet Flowsheet Date 06/24/2024 Longo Score Blood Edema Fundus Height Fundus Units Glucose Ketones Leukocytes Nitrite Labor Signs Protein Cervic Dilation Cervic Effacement Cervic Station none none Type Weight in lbs Pre/Post Dialysis Refused With clothes 279.797501863666 BP Diastolic BP Location Tested BP Systolic BP Type 88 R arm 125 sitting Fetus Heart Rate Present A 159 Present Fetus Movement A No Comments Flowsheet Date 07/22/2024 Longo Score Blood Edema Fundus Height Fundus Units Glucose Ketones Leukocytes Nitrite Labor Signs Protein Cervic Dilation Cervic Effacement Cervic Station none none Type Weight in lbs Pre/Post Dialysis Refused With clothes 289.812930883413 BP Diastolic BP Location Tested BP Systolic BP Type 82 R arm 130 sitting Fetus Heart Rate Present A 150 Present Fetus Movement A No Comments - Concerns today: Allergies are acting up; using Benadryl PRN. No CTX, LOF, vaginal bleeding, BLE edema.- Patient continues not taking psych medications; states she does not want to do anything to harm the fetus.- Exam: Fundus not palpable.- RTC: 4 weeks Flowsheet Date 08/19/2024 Longo Score Blood Edema Fundus Height Fundus Units Glucose Ketones Leukocytes Nitrite Labor Signs Protein Cervic Dilation Cervic Effacement Cervic Station none none Type Weight in lbs Pre/Post Dialysis Refused With clothes 286.369367103430 BP Diastolic BP Location Tested BP Systolic BP Type 84 R arm 131 sitting Fetus Heart Rate Present A 145 Present Fetus Movement A Yes Comments - Concerns today: None.- Has not been taking PNV consistently. Had notified us on 07/26/24 (see patient case with that date) that aspirin was not covered by insurance and was not taking it due to not being able to afford OTC aspirin.- OB ROS: Good movement. No CTX, LOF, vaginal bleeding, BLE edema.- Fundus palpable about 2 fingerbreadths below the umbilicus- RTC: 4 weeks Flowsheet Date 08/23/2024 Longo Score Blood Edema Fundus Height Fundus Units Glucose Ketones Leukocytes Nitrite Labor Signs Protein Cervic Dilation Cervic Effacement Cervic Station Type Weight in lbs Pre/Post Dialysis Refused BP Diastolic BP Location Tested BP Systolic BP Type Fetus Heart Rate Present Fetus Movement Comments Flowsheet Date 09/16/2024 Longo Score Blood Edema Fundus Height Fundus Units Glucose Ketones Leukocytes Nitrite Labor Signs Protein Cervic Dilation Cervic Effacement Cervic Station none 24 cm none Type Weight in lbs Pre/Post Dialysis Refused With clothes 296.354404226449 BP Diastolic BP Location Tested BP Systolic BP Type 77 L arm 115 sitting Fetus Heart Rate Present A 130 Present Fetus Movement A Yes Comments - Concerns today: None. Has been using Tums for heartburn.- Has been taking baby aspirin, sertraline, and aripiprazole. Mood has been better.- OB ROS: Good movement. No CTX, LOF, vaginal bleeding, BLE edema.- RTC: 3 weeks for PNV with 1h GTT Flowsheet Date 10/07/2024 Longo Score Blood Edema Fundus Height Fundus Units Glucose Ketones Leukocytes Nitrite Labor Signs Protein Cervic Dilation Cervic Effacement Cervic Station Type Weight in lbs Pre/Post Dialysis Refused With clothes 295.068661069590 BP Diastolic BP Location Tested BP Systolic BP Type 79 R arm 125 sitting Fetus Heart Rate Present Fetus Movement Comments Flowsheet Date 10/11/2024 Longo Score Blood Edema Fundus Height Fundus Units Glucose Ketones Leukocytes Nitrite Labor Signs Protein Cervic Dilation Cervic Effacement Cervic Station none 27 cm Other (see comments ) Type Weight in lbs Pre/Post Dialysis Refused With clothes 302.326827931544 BP Diastolic BP Location Tested BP Systolic BP Type 77 L arm 117 sitting Fetus Heart Rate Present A 145 Present Fetus Movement A Yes Comments - Concerns today: Hip and le g pain. Has not used lumbar support band yet. Has had 2 episodes of light pink spotting (mid-Sep and 10/08/24) that was only on the toilet paper, was not post-coital, and not associated with CTX.- OB ROS: Good movement. No CTX, LOF, BLE edema.- MSK pain: Provided [employer] handout on exercises in . Recommended Tylenol, heating pad, and lumbar support band around hips. Provided info on pelvic floor PT if home management not effective.- RTC: 2 weeks - will give Tdap and screen for 2nd/3rd tri anemia at this visit Flowsheet Date 10/28/2024 Longo Score Blood Edema Fundus Height Fundus Units Glucose Ketones Leukocytes Nitrite Labor Signs Protein Cervic Dilation Cervic Effacement Cervic Station none 34 cm none Type Weight in lbs Pre/Post Dialysis Refused With clothes 295.872680358905 BP Diastolic BP Location Tested BP Systolic BP Type 83 L arm 123 sitting Fetus Heart Rate Present A 140 Fetus Movement A Yes Comments - Concerns today: None.- OB ROS: Good movement. No CTX, LOF, vaginal bleeding, BLE edema.- RTC: 2 weeks Flowsheet Date 11/11/2024 Longo Score Blood Edema Fundus Height Fundus Units Glucose Ketones Leukocytes Nitrite Labor Signs Protein Cervic Dilation Cervic Effacement Cervic Station none 32 cm none Type Weight in lbs Pre/Post Dialysis Refused With clothes 297.171462335242 BP Diastolic BP Location Tested BP Systolic BP Type 70 R arm 114 sitting Fetus Heart Rate Present A 135 Present Fetus Movement A Yes Comments - Concerns today: Vulvar itc zuri to the point of breaking skin. No vaginal odor or change in vaginal discharge.- OB ROS: Good movement. No CTX, LOF, vaginal bleeding, BLE edema.- Exam: Erythma of labia majora and minora. Milky white discharge at introitus. Will treat empirically with fluconazole. F/u NuSwab.- Tdap vaccine given.- RTC: 2 weeks Flowsheet Date 11/25/2024 Longo Score Blood Edema Fundus Height Fundus Units Glucose Ketones Leukocytes Nitrite Labor Signs Protein Cervic Dilation Cervic Effacement Cervic Station none 36 cm none Type Weight in lbs Pre/Post Dialysis Refused With clothes 304.485135053019 BP Diastolic BP Location Tested BP Systolic BP Type 82 R arm 124 sitting Fetus Heart Rate Present A 158 Present Fetus Movement A Yes Comments - Concerns today: None. Vulv ar itching resolved after fluconazole.- OB ROS: Good movement. No CTX, LOF, vaginal bleeding, BLE edema.- Mood: okay - not taking medications as prescribed; concerned again for well-being. Denies SI/HI.- RTC: 2 weeks Flowsheet Date 12/09/2024 Longo Score Blood Edema Fundus Height Fundus Units Glucose Ketones Leukocytes Nitrite Labor Signs Protein Cervic Dilation Cervic Effacement Cervic Station trace 36 cm [place] Type Weight in lbs Pre/Post Dialysis Refused With clothes 303.259991825888 BP Diastolic BP Location Tested BP Systolic BP Type 81 L arm 137 sitting Fetus Heart Rate Present A 142 Present Fetus Movement A Yes Comments - Concerns today: None. Had one episode of vomiting earlier today but otherwise no issues.- OB ROS: Good movement. B-H CTX. No LOF, vaginal bleeding, BLE edema. No headaches, vision changes.- Will start weekly BPPs due to pre-preg BMI 47. - RTC: 2 weeks Flowsheet Date 12/22/2024 Longo Score Blood Edema Fundus Height Fundus Units Glucose Ketones Leukocytes Nitrite Labor Signs Protein Cervic Dilation Cervic Effacement Cervic Station trace 37 cm none Type Weight in lbs Pre/Post Dialysis Refused With clothes 310.792916151189 BP Diastolic BP Location Tested BP Systolic BP Type 84 R arm 122 sitting Fetus Heart Rate Present A 136 Present Fetus Movement A Yes Comments - Concerns today: None. Doin g well since OB triage visit last week. No pre-E symptoms. States BP cuff was not at pharmacy to waste picker; confirmed that she would like it sent to [facility] in [place].- OB ROS: Good movement. No CTX, LOF, vaginal bleeding. Mild BLE edema.- 3rd trimester labs collected today. Has ultrasound/NST scheduled for 12/23. Has MFM appointment next Saturday 12/30.- Discussed need for GBS swab collection at next visit. Patient does not want swab in rectum but is okay with alternative collection involving vagina, perineum, and anus only.- RTC: 2 weeks Flowsheet Date 01/06/2025 Longo Score Blood Edema Fundus Height Fundus Units Glucose Ketones Leukocytes Nitrite Labor Signs Protein Cervic Dilation Cervic Effacement Cervic Station none 40 cm none Type Weight in lbs Pre/Post Dialysis Refused With clothes 311.815513607425 BP Diastolic BP Location Tested BP Systolic BP Type 80 R arm 133 sitting 83 R arm 130 sitting Fetus Heart Rate Present A 135 Present Fetus Movement A Yes Comments - Concerns today: None- OB R OS: Good movement. No CTX, LOF, vaginal bleeding, BLE edema.- GBS swab collected today. Bedside US confirmed vertex presentation.- Patient not interested in IOL.- RTC: weekly until delivery Flowsheet Date 01/31/2025 Longo Score Blood Edema Fundus Height Fundus Units Glucose Ketones Leukocytes Nitrite Labor Signs Protein Cervic Dilation Cervic Effacement Cervic Station Type Weight in lbs Pre/Post Dialysis Refused With clothes 280.288639233294 BP Diastolic BP Location Tested BP Systolic BP Type 84 L arm 117 sitting Fetus Heart Rate Present Fetus Movement Comments Menstrual History Last Menstrual Date Menses Monthly On Bcp Conception Prior Menses Frequency Hcg Plus Date Menarche Onset Age 0704/17/2024 true false 28 4 15 Genetic Screening And Infection History Question Response Note Patient's Age Will Be 35 Yea rs Or Older At Estimated Date of Delivery false Thalassemia ([place] Citizen, Syrian, Mediterranean, Or Background): MCV < 80 false Neural Tube Defect (Meningom yelocele, Spina Bifida, Or Anencephaly) false Congenital Heart Defect false Down Syndrome false Demarco-Sachs (eg, Hindu, Cajun , St Helenian-Sammarinese) false Emelia Disease false Sickle Cell Disease Or Trait () false Hemophilia Or Other Blood Disorders false Muscular Dystrophy false Cystic Fibrosis false Ian's Chorea false Mental Retardation/Autism true fob robin s a nephew on dad side that is autistic and mob has cousin on mom side that is autistic If Yes, Was Person Tested For Fragile X? false Other Inherited Genetic Or C hromosomal Disorder false Maternal Metabolic Disorder (eg, Type 1 Diabetes, PKU) false Patient Or Baby's Father Had A Child With Defects Not Listed Above false Recurrent Loss, Or A Stillbirth false Medications (including Suppl ements, Vitamins, Herbs, OTC Drugs), Illicit/Recreational Drugs, Alcohol true Any Other Genetic History true mob mo ther with high blood pressure and bio dad with crohn's disease Live With Someone With TB Or Exposed To TB false Patient Or Partner Has Histo ry Of Genital Herpes false Rash Or Viral Illness Since Last Menstrual Period false History Of STD, Gonorrhea, C hlamydia, HPV, Syphilis false Other Infection History false History of HIV false History of Hepatitis false Prior GBS-infected child false Plans and Education First Trimester Discussed Date Discussion Item Discussion Note Discuss ed By 06/24/2024 Anticipated course of care [email or web address] 06/24/2024 Alcohol [email or web address] 06/24/2024 [facility] Nutrition counseling ; special diet; dietary precautions (mercury, listeriosis) 06/24/2024 Childbirth classes/hospital facilities [email or web address] 06/24/2024 HIV and other routine tests [id number] 06/24/2024 Risk factors identif ied by history [id number] 06/24/2024 [facility] gain [facility] 06/24/2024 Exercise [id number] 06/24/2024 Use of any medicatio ns (including supplements, vitamins, herbs, or OTC drugs) [id number] 06/24/2024 [email or web address] 06/24/2024 Sexual activity [id number] 06/24/2024 Tobacco/smoking cess ation counseling (ask, advise, assess, assist, and arrange) 06/24/2024 Illicit/recreational drugs d [id number] 06/24/2024 Dental care [id number] 06/24/2024 Travel [id number] 06/24/2024 Seat belt use [id number] 06/24/2024 Indications for ultrasonography [id number] 06/24/2024 Toxoplasmosis precautions (cats/raw meat) [id number] Second Trimester Discussed Date Discussion Item Discussion Note Discuss ed By 10/11/[address] anning/tubal sterilization [id number] 09/16/2024 Depression screening (when indicated) [id number] 09/16/2024 Signs and symptoms of labor [id number] Third Trimester Discussed Date Discussion Item Discussion Note Discuss ed By 10/11/2024 Anesthesia plans [id number] 10/11/2024 Circumcision 10/28/2024 movement monitoring Count the Kicks vitaly recommended [id number] 10/11/2024 10/11/2024 Labor signs 09/16/2024 Signs and symptoms o f preeclampsia [email or web address] Delivery Information Delivery Date Delivery Type Labor Anesthesia Weeks Gestation Incision Type Labor Labor Length Hrs Delivered By Post Complications Tubal Sterilization Discharge Date Comments 5 Sponta neous Regional-Ep idural 38.5 false Herman Grant MD None Discharge Information Feeding Method Contraceptive Method Maternal HG B and HCT Levels Combination
--- NOTE | 2025-03-06 10:26 | ED.LOWEXIN ---
HPI - Extremity Injury (Lower) General Chief Complaint: Extremity Injury, Lower Stated Complaint: Left Foot Pain Time Seen by Provider: 03/06/25 10:10 Source: patient and RN notes reviewed Mode of arrival: ambulatory Limitations: no limitations History of Present Illness HPI Narrative: 25-year-old female Presents Express Care complaining of injury to left ankle and foot. Patient reports yesterday she was getting things out of the trunk of her car at home when she tripped over the loose gravel in her driveway and fell and landed on her left ankle and foot. Patient says she heard a pop in her foot of eye pain and swelling. Patient says he can barely bear weight on her left foot due to the pain. Patient denies hitting her head, neck pain, back pain, or loss of consciousness, or any other injuries. Patient is not taking [id number]. Patient denies any numbness, tingling or any other injuries. Patient has a decent significant past medical history. Related Data Home Medications ?Medication ?Instructions ?Recorded ?Confirmed ?Last Taken ?Type aripiprazole 5 mg tablet mg 03/06/25 Unknown History buspirone 15 mg tablet mg 03/06/25 Unknown History norgestimate 0.25 mg-ethinyl tablet 03/06/25 Unknown History estradiol 0.035 mg tablet (Sprintec (28)) sertraline 50 mg tablet mg 03/06/25 Unknown History Allergies Allergy/AdvReac Type Severity Reaction Status Date / Time tramadol Allergy Unknown Unknown Verified 03/06/25 10:02 Review of Systems Review of Systems: CONSTITUTIONAL: Denies fever, chills, or sweats. EYES: Denies visual changes, redness, or discharge. ENT: Denies rhinorrhea, congestion, sore throat, or otalgia. CARDIOVASCULAR: Denies chest pain, palpitations, or edema. RESPIRATORY: Denies cough or dyspnea. GASTROINTESTINAL: Denies abdominal pain, nausea, vomiting, or diarrhea. GENITOURINARY: Denies dysuria or hematuria. SKIN: Denies rash, wound, or itching. MUSCULOSKELETAL: Denies back pain, joint pain, or myalgia. Positive for injury and swelling NEUROLOGIC: Denies headache, numbness, or weakness. PSYCHIATRIC: Denies anxiety or depression. All other systems reviewed are negative, except as documented in HPI. PMFSH Comments At the time of my signature, I reviewed and agree with the nursing past medical, surgical, social, and family history. There is no relevant family history pertinent to the patient complaint. Exam Narrative: GENERAL: This is a well-nourished, well-developed adult, in no apparent distress. They are non ill-appearing, nontoxic appearing. Patient is obese. Physical exam limited due to large body habitus. HEAD: normocephalic, atraumatic. EYES: Sclera clear/white. Vision is grossly intact. Conjunctiva normal. Extraocular movement intact. EARS: External ears normal Hearing grossly intact. NOSE: External nose normal THROAT: Mucous membranes moist NECK: Neck supple CARDIOVASCULAR: Regular rate and rhythm RESPIRATORY: Respiratory rate normal, respiratory effort nonlabored, no respiratory distress NEURO: awake, alert, and oriented to person, place and time. There were no obvious focal neurologic abnormalities. EXTREMITIES: Left ankle/foot No obvious deformity. There is lateral swelling to the left ankle area. No bruising or redness. Normal dorsiflexion and plantar flexion of left foot. There is pain with movement. Negative Anand's test. Lateral tenderness to the left ankle. Dorsal tenderness to the proximal foot. Capillary refill less than 3 seconds. Pedal pulse Pulse 2 +palpable. Normal sensation. Neurovascular status intact distal injury. Patient still or other toes. BACK: Nontender without deformity. Course Course Emergency Course: Portions of this record may have been created with voice recognition software Level of Care: Express Care Visit Vital Signs Vital signs: Vital Signs Temperature 98.0 F 03/06/25 09:46 Pulse Rate 70 03/06/25 09:46 Respiratory Rate 20 03/06/25 09:46 Blood Pressure 124/79 03/06/25 09:46 Pulse Oximetry 97 03/06/25 09:46 Oxygen Delivery Room Air 03/06/25 09:46 Temperature 98.0 F 03/06/25 09:46 Pulse Rate 70 03/06/25 09:46 Respiratory Rate 20 03/06/25 09:46 Blood Pressure 124/79 03/06/25 09:46 Pulse Oximetry 97 03/06/25 09:46 Oxygen Delivery Room Air 03/06/25 09:46 Reviewed MDM - Extremity Injury (Lower) MDM Narrative Medical decision making narrative: X-ray of left ankle/foot revealed no evidence of fracture or acute findings. Patient was given ice double swelling. Patient was given Devante wrap and crutches as well. Discussed physical exam findings. Advised supportive measures and signs/symptoms to go to the ER. Pt is appropriate for outpt treatment and f/u. Differential Diagnosis Differential diagnosis: Likely ankle sprain and strain and other (Tendon injury, ankle/foot fracture) Imaging Data Radiologist's impression: ITS Impressions Ankle X-Ray 03/06/25 10:41 Impression: 1: No acute bone or joint abnormality. Foot X-Ray 03/06/25 10:41 Impression: 1: No acute bone or joint abnormality. Critical Care Time Critical Care Time Critical Care Time: No Discharge Plan Discharge Clinical Impression: Injury of ankle, left Qualifiers: Encounter type: initial encounter Qualified Code(s): S99.912A - Unspecified injury of left ankle, initial encounter Patient Disposition: Home Condition: Stable Instructions: Ankle Sprain (ED) Additional Instructions: Your x-ray of your left ankle and foot was negative for any fractures or acute findings. Rest and elevate the leg; bear weight as tolerated Use the crutches as needed. Apply ice 15-20 minute intervals several times a day Keep it wrapped with DEVANTE or use a soft ankle splint Motrin 600mg -800mg every 8 hours, alternate with Tylenol 1000mg every 8 hours as needed Follow up with your primary care provider or orthopedist in 10-14 days if pain does not get better. For any serious concerns, significant pain, or numbness or tingling please go to the ER immediately. Patient Language: Welsh Prescriptions: No Action norgestimate-ethinyl estradiol [Sprintec (28)] 0.25-0.035 mg tablet sertraline 50 mg tablet buspirone 15 mg tablet aripiprazole 5 mg tablet Follow-up/Referrals: PHYSICIAN,PURCHASE PRICE ANALYST [Primary Care Provider] - Nick Mayers MD [Physician] - Time of Disposition: 10:59
== END 2025-03-06 11:07 | disposition home or self-care (01) ==
DX: S99.912A Unspecified injury of left ankle, initial encounter (principal); W01.0XXA Fall on same level from slipping, tripping and stumbling without subsequent striking against object, initial encounter
CPT/HCPCS: 73610; 73630; 99203; G0463